=== PATIENT | male | born 1970 | race Caucasian/White ===

== ENCOUNTER 2022-12-23 10:53 | Outpatient (OUT) | payer BC, SELFPAY ==
[2022-12-23 11:40] LABS: Basophils Absolute Auto 0.1 10^3/uL (0.0-0.1); Basophils Percent Auto 0.9 % (0.2-2.0); Eosinophils Absolute Auto 0.1 10^3/uL (0.0-0.7); Eosinophils Percent Auto 1.4 % (0.9-7.0); Hematocrit 48.4 % (42.0-54.0); Hemoglobin 16.2 g/dL (14.0-18.0); Immature Granulocytes Abs Auto 0.03 10^3/uL (0.00-0.03); Immature Granulocytes Pct Auto 0.3 % (0.0-0.5); Lymphocytes Absolute Auto 2.2 10^3/uL (1.2-3.8); Lymphocytes Percent Auto 21.6 % (20.5-60.0); Mean Corpuscular HGB Conc 33.5 g/dL (29.9-35.2); Mean Corpuscular Hemoglobin 29.8 pg (25.9-34.0); Monocytes Absolute Auto 0.6 10^3/uL (0.3-0.8); Monocytes Percent Auto 5.9 % (1.7-12.0); Neutrophils Absolute Auto 7.1 10^3/uL (1.4-6.5); Neutrophils Percent Auto 69.9 % (43.0-75.0); Platelet Count 270 10^3/uL (150-450); Red Blood Count 5.44 10^6/uL (4.70-6.10); Red Cell Distribution Width 12.5 % (11.0-15.0); White Blood Count 10.2 10^3/uL (4.0-11.0)
[2022-12-23 12:02] LABS: Estimated Average Glucose 111 mg/dL; Glycohemoglobin A1C 5.5 % (4.5-6.2)
[2022-12-23 12:22] LABS: Alanine Aminotransferase 28 U/L (16-63); Albumin Level 3.7 g/dL (3.4-5.0); Alkaline Phosphatase 93 U/L (46-116); Anion Gap 12.1; Aspartate Amino Transferase 17 U/L (15-37); BUN Creatinine Ratio 6.5; Bilirubin Total 0.4 mg/dL (0.2-1.0); Calcium 8.9 mg/dL (8.5-10.1); Carbon Dioxide 26.1 mmol/L (21.0-32.0); Chloride 105 mmol/L (98-107); Chol HDL Ratio 5.2; Cholesterol 183 mg/dL (<=200); Estimated GFR (African America >60 (>=60); Estimated GFR (Non-African Ame >60 (>=60); Free T3 2.84 pg/mL (2.18-3.98); Globulin 3.6 g/dL; Glucose 102 mg/dL (74-106); HDL Cholesterol 35 mg/dL (40-60); Potassium 4.2 mmol/L (3.5-5.1); Sodium 139 mmol/L (136-145); Thyroid Stimulating Hormone 1.656 uIU/mL (0.358-3.740); Total Protein 7.3 g/dL (6.4-8.2); Triglycerides 180 mg/dL (<=150); Uric Acid 4.9 mg/dL (3.5-7.2)
[2022-12-23 12:54] LABS: Prostate Specific Antigen Scrn 0.93 ng/mL (<=4.00)
[2022-12-23 15:37] LABS: Occult Blood Negative
[2022-12-24 12:09] LABS: Insulin 17.9 uIU/mL (2.6-24.9)
== END 2022-12-23 10:54 | disposition home or self-care (01) ==
LOC: LAB 10:59
PROVIDERS: PCP Family Medicine; Visit Provider Nurse Practitioner Family
DX: Z00.00 Encounter for general adult medical examination without abnormal findings (principal); Z12.5 Encounter for screening for malignant neoplasm of prostate; Z12.11 Encounter for screening for malignant neoplasm of colon; R53.83 Other fatigue
CPT/HCPCS: 36415; 80053; 80061; 82150; 82656; 83036; 83525; 83690; 84436; 84443; 84481; 84550; 85025; G0103; G0328

== ENCOUNTER 2022-12-23 11:03 | Outpatient (OUT) | payer BC, SELFPAY ==
--- NOTE | 2022-12-23 11:39 | US_ITS ---
The [address] [address] Patient Name: JOSH KEMP MRN: [id number] date: 1970 Sex: M Assigned Patient Location: RAD Current Patient Location: [facility] Accession/Order Number: [id number] Exam Date: 12/23/2022 11:50 Report Date: 12/23/2022 13:58 At the request of: NON-STAFF PHYSICIAN Procedure: US right upper quadrant EXAMINATION: US right upper quadrant HISTORY: Abdominal pain R10.9 , epigastric pain COMPARISON: No relevant comparison available. TECHNIQUE: Transabdominal evaluation of the right upper quadrant. FINDINGS: LIVER: Mild fatty infiltration. Color Doppler demonstrates patent hepatic veins. PORTAL VEIN: Duplex Doppler demonstrates normal hepatopetal flow pattern with flow velocity averaging 34 cm/s. GALLBLADDER: No visible gallstones, wall thickening, or pericholecystic free fluid. Negative sonographic Le's sign. BILIARY: Mild dilation of the common bile duct, 7.5 mm; no appreciable stones or mass. PANCREASE: No visible mass, abnormal atrophy, or duct dilation. KIDNEY: No hydronephrosis. No visible mass or stones. Size: 12.1 x 5.0 x 6.0 cm US/US right upper quadrant IMPRESSION: 1. Mildly dilated common bile duct of uncertain etiology. Normal appearance of gallbladder and pancreas. Electronically authenticated by: EAGLE SEARS Date: 12/23/2022 13:58
[2022-12-23 12:09] LABS: Amylase 22 U/L (25-115)
[2022-12-25 13:08] LABS: Pancreatic Elastase, Fecal 312 (>200)
== END 2022-12-23 11:04 | disposition home or self-care (01) ==
PROVIDERS: PCP Family Medicine
DX: Z00.00 Encounter for general adult medical examination without abnormal findings (principal); Z12.5 Encounter for screening for malignant neoplasm of prostate; Z12.11 Encounter for screening for malignant neoplasm of colon; R10.9 Unspecified abdominal pain; K83.8 Other specified diseases of biliary tract; R53.83 Other fatigue
CPT/HCPCS: 36415; 76705; 80053; 80061; 82150; 82656; 83036; 83525; 83690; 84436; 84443; 84481; 84550; 85025; G0103; G0328

== ENCOUNTER 2022-12-24 14:06 | Outpatient (OUT) | payer BC, SELFPAY ==
--- NOTE | 2022-12-24 14:10 | CT_ITS ---
[address] [address] Patient Name: JOSH KEMP MRN: [id number] date: 1970 Sex: M Assigned Patient Location: CT Current Patient Location: CT Accession/Order Number: [id number] Exam Date: 12/24/2022 14:48 Report Date: 12/24/2022 15:31 At the request of: NON-STAFF PHYSICIAN Procedure: CT abdomen w con EXAM: CT abdomen w con HISTORY: Abdominal pain R10.9 COMPARISON: 05/14/2021 TECHNIQUE: Axial CT imaging was performed through the abdomen with intravenous contrast. Multiplanar reformats were performed. Dose reduction techniques were achieved by using automated exposure control and/or adjustment of mA and/or kV according to patient size and/or use of iterative reconstruction technique. FINDINGS: Lung bases: Lung bases are clear. No pleural effusion. GI upper: Small hiatal hernia. Liver: Hepatic steatosis. Normal size and contour. Gallbladder: No significant abnormality. No cholelithiasis. Biliary system: No intra or extrahepatic biliary ductal dilatation. Spleen: Normal size. Pancreas: Unremarkable. Adrenal glands: Normal adrenal glands. Kidneys/ureters: Normal contours. No hydronephrosis. No nephrolithiasis or ureterolithiasis. Vessels: No aneurysm. Lymph Nodes: No lymphadenopathy. lower GI: Unremarkable Vasculature is unremarkable Peritoneal cavity: No free fluid or pneumoperitoneum. Bones: No acute bony abnormality. Soft tissues: No acute abnormality. Additional findings: None. CT/CT abdomen w con IMPRESSION: No acute abnormality. Common duct is normal in size, measuring 0.6 CM. Mild hepatic steatosis. Small hiatal hernia. Electronically authenticated by: GISELLE WOODSON Date: 12/24/2022 15:31
== END 2022-12-24 14:07 | disposition home or self-care (01) ==
LOC: CT 14:06
PROVIDERS: PCP Family Medicine
DX: R10.9 Unspecified abdominal pain (principal); K76.0 Fatty (change of) liver, not elsewhere classified; K44.9 Diaphragmatic hernia without obstruction or gangrene
CPT/HCPCS: 74160; Q9967

== ENCOUNTER 2023-11-22 08:35 | Outpatient (OUT) | payer MEDICAID, SELFPAY ==
[2023-11-22 08:54] LABS: Basophils Absolute Auto 0.1 10^3/uL (0.0-0.1); Eosinophils Absolute Auto 0.3 10^3/uL (0.0-0.7); Eosinophils Percent Auto 3.2 % (0.9-7.0); Hematocrit 49.1 % (42.0-54.0); Hemoglobin 16.7 g/dL (14.0-18.0); Immature Granulocytes Abs Auto 0.02 10^3/uL (0.00-0.03); Immature Granulocytes Pct Auto 0.2 % (0.0-0.5); Lymphocytes Absolute Auto 1.9 10^3/uL (1.2-3.8); Lymphocytes Percent Auto 20.4 % (20.5-60.0); Mean Corpuscular Hemoglobin 30.6 pg (25.9-34.0); Mean Corpuscular Volume 90.1 fL (80.0-94.0); Mean Platelet Volume 10.1 fL (9.5-13.5); Monocytes Absolute Auto 0.6 10^3/uL (0.3-0.8); Monocytes Percent Auto 6.8 % (1.7-12.0); Neutrophils Absolute Auto 6.3 10^3/uL (1.4-6.5); Neutrophils Percent Auto 68.4 % (43.0-75.0); Platelet Count 272 10^3/uL (150-450); Red Blood Count 5.45 10^6/uL (4.70-6.10); Red Cell Distribution Width 12.5 % (11.0-15.0); White Blood Count 9.1 10^3/uL (4.0-11.0)
[2023-11-22 09:15] LABS: Estimated Average Glucose 105 mg/dL; Glycohemoglobin A1C 5.3 % (4.5-6.2)
[2023-11-22 09:25] LABS: Alanine Aminotransferase 36 U/L (16-63); Albumin Globulin Ratio 0.9; Albumin Level 3.6 g/dL (3.4-5.0); Alkaline Phosphatase 97 U/L (46-116); Anion Gap 11.8; Aspartate Amino Transferase 22 U/L (15-37); BUN Creatinine Ratio 13.2; Bilirubin Total 0.4 mg/dL (0.2-1.0); Calcium 8.8 mg/dL (8.5-10.1); Carbon Dioxide 27.3 mmol/L (21.0-32.0); Chloride 106 mmol/L (98-107); Estimated GFR (African America >60 (>=60); Estimated GFR (Non-African Ame >60 (>=60); Globulin 3.9 g/dL; Glucose 116 mg/dL (74-106); Potassium 4.1 mmol/L (3.5-5.1); Sodium 141 mmol/L (136-145); Thyroid Stimulating Hormone 1.516 uIU/mL (0.358-3.740); Total Protein 7.5 g/dL (6.4-8.2)
[2023-11-22 09:42] LABS: Prostate Specific Antigen Scrn 2.01 ng/mL (<=4.00)
== END 2023-11-22 08:36 | disposition home or self-care (01) ==
LOC: LAB 08:37
PROVIDERS: PCP Family Medicine; Visit Provider Family Medicine
DX: Z00.00 Encounter for general adult medical examination without abnormal findings (principal)
CPT/HCPCS: 36415; 80053; 83036; 84439; 84443; 85025; G0103

== ENCOUNTER 2024-05-17 11:24 | Outpatient (OUT) | payer BC, SELFPAY ==
--- OUTSIDE RECORDS SUMMARY | 2024-05-17 11:34 | XMS_ITS | CCD ---
Author Organization [facility] Care Team Providers Care Principal Research Economist Name Role Phone Silvia Batista Unavailable Unavailable Unavailable MER NEIL Admitting Unavailable MER NEIL Attending Unavailable BAIRON, DR VEGA Primary Care Unavailable Rishi Saenz Consulting Unavailable MER NEIL Consulting Unavailable BAIRON, DR VEGA Admitting Unavailable BAIRON, DR VEGA Attending Unavailable BAIRON, DR VEGA Primary Care Unavailable BAIRON, DR VEGA Consulting Unavailable WIALEJANDROK, DR QUANG Huerta Admitting Unavailable WIALEJANDROK, DR QUANG Huerta Attending Unavailable BAIRON, DR VEGA Primary Care Unavailable WIMITUL, DR QUANG Huerta Consulting Unavailable Kimberly Seals Consulting Unavailable BAIRON, DR VEGA Admitting Unavailable BAIRON, DR VEGA Attending Unavailable BAIRON, DR VEGA Primary Care Unavailable BAIRON, DR VEGA Consulting Unavailable BAIRON, DR VEGA Admitting Unavailable BAIRON, DR VEGA Attending Unavailable BAIRON, DR VEGA Referring Unavailable MEENAY, DR VEGA Primary Care Unavailable HOY, DR VEGA Consulting Unavailable BAIRON, DR VEGA Primary Care Unavailable MER NEIL Admitting Unavailable MER NEIL Attending Unavailable NEYMAR, DR NORTON Consulting Unavailable KAMILLA GUTIÉRREZ Consulting Unavailable MER NEIL Consulting Unavailable Mary Alice Ruvalcaba Consulting Unavailable SHIRA, DR QUANG Huerta Admitting Unavailable SHIRA, DR QUANG Huerta Attending Unavailable BAIRON, DR VEGA Primary Care Unavailable SHIRA, DR QUANG Huerta Consulting Unavailable SHIRA, DR QUANG Huerta Admitting Unavailable SHIRA, DR QUANG Huerta Attending Unavailable BAIRON, DR VEGA Primary Care Unavailable SHIRA, DR QUANG Huerta Consulting Unavailable ROLANDO COOK Consulting Unavailable EAGLE BRITT Consulting Unavailable Caden Cervantes Unavailable Medications Current Medications Medication Drug Class(es) Dates Sig (Normalized) Sig (Original) Aspir-81 (1 source) Aspir-81 Active Metoprolol (1 source) beta-Adrenergic Hero Lopressor 10mg Active omeprazole 40 mg delayed release oral capsule (1 source) Proton Pump Inhibitor Start: 12-23-2022 take 1 capsule by mouth once daily Omeprazole 40 MG 1 capsule 30 minutes before morning meal Orally Once a day for 30 days Dec, Active Completed/Discontinued Medications Medication Drug Class(es) Dates Sig (Normalized) Sig (Original) aspirin 81 mg delayed release oral tablet (3 sources) Platelet Aggregation Inhibitor, Nonsteroidal Anti-inflammatory Drug take 1 tablet by mouth once daily Aspirin EC 81 MG Oral Tablet Delayed Release TAKE 1 TABLET DAILY. Quantity: 0 Refills: 0 Ordered: 04-Jun-2021 DO Active famotidine 20 mg oral tablet (2 sources) Histamine-2 Receptor Antagonist Start: 06-04-2021 take 1 tablet by mouth at bedtime Famotidine 20 MG Oral Tablet TAKE 1 TABLET AT BEDTIME. Quantity: 90 Refills: 3 Ordered: 05-Jun-2021 Edouard Carr MD Start : 04-Jun-2021 Active new start lisinopril 20 mg oral tablet (3 sources) Angiotensin Converting Enzyme Inhibitor Lisinopril 20 MG Oral Tablet Quantity: 0 Refills: 0 Ordered: 04-Jun-2021 DO Active pantoprazole (1 source) Proton Pump Inhibitor Protonix Not-Taking pravastatin sodium 20 mg oral tablet (3 sources) HMG-CoA Reductase Inhibitor Start: 06-04-2021 take 1 tablet by mouth two times weekly Pravastatin Sodium 20 MG Oral Tablet one tablet twice weekly Quantity: 24 Refills: 3 Ordered: 05-Jun-2021 Edouard Carr MD Start : 04-Jun-2021 Active new start Pravachol Active Problems Active Problems Problem Classification Problem Date Documented Date Episodic/Chronic Abdominal pain (8 sources) Epigastric pain; Translations: [Unspecified abdominal pain] Onset: 06-05-2021 Episodic Disorders of lipid metabolism (3 sources) Hyperlipidemia; Translations: [Other and unspecified hyperlipidemia] Chronic Diverticulosis and diverticulitis (1 source) Diverticulosis of large intestine without perforation or abscess without bleeding; Translations: [DVRTCLOS LG INT NO PERF/ABSC W/O BL] Onset: 08-13-2021 Chronic Esophageal disorders (4 sources) Gastroesophageal reflux disease; Translations: [Esophageal reflux] Onset: 08-13-2021 Chronic Essential hypertension (4 sources) Benign essential hypertension; Translations: [Benign essential hypertension] Onset: 05-15-2021 Chronic Gastritis and duodenitis (1 source) Gastritis, unspecified, without bleeding; Translations: [GASTRITIS UNS WITHOUT BLEEDING] Onset: 08-13-2021 Episodic Other and unspecified benign neoplasm (1 source) Benign neoplasm of colon, unspecified; Translations: [BENIGN NEOPLASM COLON UNSPECIFIED] Onset: 08-13-2021 Episodic Other liver diseases (1 source) Fatty (change of) liver, not elsewhere classified; Translations: [FATTY CHANGE LIVER NEC] Onset: 06-05-2021 Chronic Other nutritional; endocrine; and metabolic disorders (3 sources) Body mass index 40+ - severely obese; Translations: [Morbid obesity] Chronic Other screening for suspected conditions (not mental disorders or infectious disease) (5 sources) Encounter for screening for malignant neoplasm of colon; Translations: [Encounter for screening for malignant neoplasm of prostate] Onset: 05-15-2021 Episodic Substance-related disorders (4 sources) Smoker; Translations: [Tobacco use disorder] Onset: 08-13-2021 Chronic Comment on above: 1 pack per day.; Unclassified (4 sources) CONTACT W/AND (SUSP) EXPOS COVID-19; Translations: [CONTACT W/AND (SUSP) EXPOS COVID-19] Onset: 05-15-2021 Viral infection (1 source) COVID-19; Translations: [COVID-19] Onset: 06-21-2021 Past or Other Problems Problem Classification Problem Date Documented Da te Episodic/Chronic Genitourinary symptoms and ill-defined conditions (1 source) Hematuria, unspecified; Translations: [HEMATURIA UNSPECIFIED] Onset: 05-15-2021 Episodic Nonspecific chest pain (4 sources) Chest pain; Translations: [Chest pain, unspecified] Onset: 05-15-2021 Episodic Other aftercare (1 source) Other jail (current) drug therapy; Translations: [OTH ASSISTED CURRENT DRUG THERAPY] Onset: 05-15-2021 Episodic Other aftercare (1 source) senior living (current) use of aspirin; Translations: [ASSISTED CURRENT USE OF ASPIRIN] Onset: 05-15-2021 Episodic Spondylosis; intervertebral disc disorders; other back problems (1 source) Dorsalgia, unspecified; Translations: [DORSALGIA UNSPECIFIED] Onset: 05-15-2021 Episodic Unclassified (1 source) CONTACT W/AND (SUSP) EXPOS COVID-19; Translations: [CONTACT W/AND (SUSP) EXPOS COVID-19] Onset: 06-26-2021 Urinary tract infections (4 sources) Urinary tract infection, site not specified; Translations: [UTI SITE NOT SPECIFIED] Onset: 06-04-2021 Episodic Results Test Name Value Interpretation Reference Range Facility NM HEPATOBILIARY SCAN W EFon 07-23-2021 NM HEPATOBILIARY SCAN W EF HIDA SCAN WITH GALLBLADDER EJECTION FRACTION HISTORY: Abdominal Pain. COMPARISON: Ultrasound 06/04/2021. METHOD: Following IV injection of 5. mCi of [id number] , anterior imaging of the abdomen was acquired for 60 minutes. After the gallbladder was visualized the patient was given 8 ounces of Ensure and the gallbladder ejection fraction was calculated. FINDINGS: There is satisfactory uptake of radiopharmaceutical by the liver. The gallbladder, bile duct, and bowel are seen in the expected period of time and sequence. The gallbladder ejection fraction is normal at 75%. IMPRESSION: Normal hepatic biliary scintigraphy and gallbladder ejection fraction. Electronically authenticated by: KIMBERLY SEALS Date: 2021-07-23 17:04 Normal [facility] H PYLORI TISSUEon 07-06-2021 H PYL TISSUE, UREASE Negative Normal NEGATIVE [facility] Comment on above: Performed By: #### H PYLT #### [facility] [address] [address] [address] Miguel Echols [facility]on SARS-CoV-2 (COVID-19) RNA COURTNEY+probe Ql (Unsp spec) Not detected Normal NOT DETECTED [facility] Comment on above: Result Comment: This test is not yet approved or cleared by the [place] FDA. When there are no FDA-approved or cleared tests available, and other criteria are met, FDA can make tests available under an emergency access mechanism called an Emergency Use Authorization (EUA). The EUA for this test is supported by the Manufacturing Production Technician of Health and Human Service's (HHS's) declaration that circumstances exist to justify the emergency use of in vitro diagnostics for the detection and/or diagnosis of the virus that causes COVID-19. This EUA will remain in effect (meaning this test can be used) for the duration of the COVID-19 declaration justifying emergency of IVDs, unless it is terminated or revoked by FDA (after which the test may no longer be used). When diagnostic testing is negative, the possibility of a false negative should be considered in the context of a patient's recent exposures and the presence of clinical signs and symptoms consistent with SARS-CoV-2. Performed By: #### C VDTB #### [facility] [address] [place], [place] [id number] Dr. Miguel Echols Covid-19 PCR ([facility])on SARS-CoV-2 (COVID-19) RNA COURTNEY+probe Ql (Unsp spec) Detected Critically abnormal NOT DETECTED [facility] Comment on above: Result Comment: This test is not yet approved or cleared by the [place] FDA. When there are no FDA-approved or cleared tests available, and other criteria are met, FDA can make tests available under an emergency access mechanism called an Emergency Use Authorization (EUA). The EUA for this test is supported by the Manufacturing Production Technician of Health and Human Service's (HHS's) declaration that circumstances exist to justify the emergency use of in vitro diagnostics for the detection and/or diagnosis of the virus that causes COVID-19. This EUA will remain in effect (meaning this test can be used) for the duration of the COVID-19 declaration justifying emergency of IVDs, unless it is terminated or revoked by FDA (after which the test may no longer be used). Performed By: #### C VDTB #### [facility] [address] [place], [place] [id number] Dr. Miguel Echols SINGLE QUAD RT UPPERon US SINGLE QUAD RT UPPER EXAM: Right upper quadrant ultrasound REASON FOR EXAM: Male, 50 years, Right upper quadrant pain. TECHNIQUE: Transabdominal ultrasound was performed with real-time and static grayscale imaging. TECHNICAL QUALITY: Technique is adequate. COMPARISON: CT 05/14/2021 FINDINGS: LIVER: There is increased echogenicity of the liver consistent with steatosis. The liver is enlarged, measuring 19.7 cm in length. The bile ducts are within normal limits. There is normal hepatic flow. There is normal hepatopedal portal venous flow. There is no demonstrated mass lesion. GALLBLADDER: Normal distended gallbladder. The gallbladder wall measures 2 mm. There is a negative sonographic Le's sign. There is no pericholecystic fluid. There are no gallstones. COMMON BILE DUCT: The common bile duct measures 4.1 mm. PANCREAS: Normal size of the head, body, and tail of the pancreas. There is normal echogenicity of the pancreas. There is no demonstrated pancreatic mass or cyst. RIGHT KIDNEY: Normal size of the kidney. The kidney measures 11.7 x 5.5 x 5.1 cm. Normal renal cortex. There is no demonstrated renal mass or cyst. There is no hydronephrosis. IMPRESSION: Hepatic steatosis and hepatomegaly. Unremarkable gallbladder. No additional abnormality is seen. Electronically authenticated by: RISHI SAENZ Date: 2021-06-04 22:15 Normal [facility] CULTURE URINEon 06-04-2021 CULTURE URINE Culture Observations : LIGHT GROWTH OF MIXED SKIN MARISA. NO POTENTIAL PATHOGENS SEEN. Normal [facility] Comment on above: Performed By: #### P SASCLC #### [facility] [address] [place] [address] Dr. Miguel Echols Office Visit (Cardiology)on 06-04-2021 Follow-up visit Diagnoses/Problems Assessed Chest pain (786.50) (R07.9) Essential hypertension, benign (401.1) (I10) Hyperlipidemia (272.4) (E78.5) Morbid obesity with BMI of 40.0-44.9, adult (278.01,V85.41) (E66.01,Z68.41) Current smoker (305.1) (F17.200) 1 pack per day. GERD (gastroesophageal reflux disease) (530.81) (K21.9) Orders Chest pain, Essential hypertension, benign IO EKG Electrocardiogram- 12 Lead; Status:Complete; Done: 04Jun2021 Chest pain, GERD (gastroesophageal reflux disease) Changed: From To Famotidine 20 MG Oral Tablet TAKE 1 TABLET AT BEDTIME Chest pain, Hyperlipidemia Cardiac Stress Test; Status:Hold For - Scheduling; Requested for:04Jun2021; Hyperlipidemia Changed: From To Pravastatin Sodium 20 MG Oral Tablet one tablet twice weekly Morbid obesity with BMI of 40.0-44.9, adult Healthy Weight Tips; Status:Complete; Done: 04Jun2021 SocHx: Current smoker You need to quit smoking.; Status:Complete; Done: 04Jun2021 Tobacco Use Screening; Status:Complete; Done: 04Jun2021 You need to stop smoking. Though it is not easy, more than half of all adult smokers have quit. We encourage you to write down all the reasons you should quit smoking and set a quit date for yourself. Ask us how we can help. You may also call 0-573-HIAMNOW for free resources and assistance.; Status:Complete; Done: 04Jun2021 Patient Instructions By signing my name below, Chiquita Vázquez LPN, Scribe, attest that this documentation has been prepared under the direction and in the presence of Dr. Edouard Carr MD. All medical record entries made by the Winnie were at my direction and personally dictated by me. I have reviewed the chart and agree that the record accurately reflects my personal performance of the history, physical exam, discussion and plan. Please bring all medicines, vitamins, and herbal supplements with you when you come to the office. Prescriptions will not be filled unless you are compliant with your follow up appointments or have a follow up appointment scheduled as per instruction of your physician. Refills should be requested at the time of your visit. Follow-up after testing completed Chief Complaint JOSH KEMP is being seen for an initial evaluation of an abnormal ECG. History of Present Illness Patient is self-referred for chest discomfort Recently has been experiencing episodes of epigastric and chest discomfort. Often times after meals. He states certain kinds of foods reproduce the symptomatology. He had a really bad episode, though, and ultimately went to the emergency room in [place] after an hour of pain. He had about 3 or 4 more hours of pain in the emergency room. They kept him for 7 hours and did multiple EKGs and 3 sets of cardiac enzymes, all of which were normal except for an incomplete right bundle branch block. He presents now for evaluation. Detailed history and suggest to me that his symptomatology actually sounds like gallbladder colic and/or acid reflux with esophageal spasm. His concurs. He is aerobically active and has none of the symptoms with aerobic activity but typically has them at rest and/or after meals. Because of this I recommend that we add something for presumed acid reflux specifically Pepcid twice a day. He has a gallbladder ultrasound pending and we also feel that in view of his risk profile for coronary disease which includes hypertension hyperlipidemia and tobacco use that a treadmill test should be done and I believe routine treadmill testing will suffice. This will be done and a follow-up thereafter He was counseled extensively on the merits of smoking cessation and also statin therapy. He ultimately agrees to taking a small dose of pravastatin several times per week. We will attempt to implement this and/or other low-dose statin therapies in an effort to favorably improve his hyperlipidemia. Also the merits of diet and weight loss were touched upon. Surgical History Problems Denied: History of Complete colonoscopy History of Nose surgery History of Vasectomy Current Meds Medication NameInstruction Aspirin EC 81 MG Oral Tablet Delayed ReleaseTAKE 1 TABLET DAILY. Lisinopril 20 MG Oral Tablet Allergies Medication No Known Drug Allergies Recorded By: Luz Martínez; 06/04/2021 10:10:41 AM Family History Mother Family history of hypertension (V17.49) (Z82.49) Family history of malignant neoplasm (V16.9) (Z80.9) Father Family history of diabetes mellitus (V18.0) (Z83.3) Family history of hypertension (V17.49) (Z82.49) Brother Family history of hypertension (V17.49) (Z82.49) Family history of Kidney stones, calcium oxalate Social History Problems Caffeine use (V49.89) (Z78.9) one pot daily. Consumes alcohol occasionally (V49.89) (Z78.9) Current smoker (305.1) (F17.200) 1 pack per day. No illicit drug use Review of Systems Constitutional: not feeling tired. Eyes: no eyesight problems. ENT: no hearing loss and no no (more content not included)... Normal [employer] Tobacco Screening.on 022 Tobacco use status [facility] a) Yes -[facility] y [address] DO Work Phone: UA RANDOM W/MICROSCOPICon BACTERIA NONE SEEN Normal NONE SEEN [facility] Comment on above: Performed By: #### P SASCLC #### [facility] [address] [address] [address] Miguel Echols Bilirubin Ql (U) SMALL Abnormal NEGATIVE [facility] Comment on above: Performed By: #### P SASCLC #### [facility] [address] [address] [address] Miguel Echols CAST NONE SEEN Normal NONE SEEN [facility] Comment on above: Performed By: #### P SASCLC #### [facility] [address] [address] [address] Miguel Echols Clarity (U) CLEAR Normal CLEAR [facility] Comment on above: Performed By: #### P SASCLC #### [facility] [address] [place] [address] Dr. Miguel Echols Color (U) LT. YELLOW Normal YELLOW [facility] Comment on above: Performed By: #### P SASCLC #### [facility] [address] [place] [address] Dr. Miguel Echols Crystals LM Nom (Urine sed) NONE SEEN Normal NONE SEEN [facility] Comment on above: Performed By: #### P SASCLC #### [facility] [address] [place] [address] Dr. Miguel Echols Epithelial cells LM Ql (Urine sed) RARE Normal NONE SEEN /RARE [facility] Comment on above: Performed By: #### P SASCLC #### [facility] [address] [place] [address] Dr. Miguel Echols Glucose Ql (U) Negative Normal NEGATIVE [facility] Comment on above: Performed By: #### P SASCLC #### [facility] [address] [place] [address] Dr. Miguel Echols Hemoglobin Ql (U) Negative Normal NEGATIVE [facility] Comment on above: Performed By: #### P SASCLC #### [facility] [address] [place] [address] Dr. Miguel Echols Ketones Ql (U) Negative Normal NEGATIVE [facility] Comment on above: Performed By: #### P SASCLC #### [facility] [address] [place] [address] Dr. Miguel Echols LEUKOCYTES Negative Normal NEGATIVE [facility] Comment on above: Performed By: #### P SASCLC #### [facility] [address] [place], [place] [id number] Dr. Miguel Echols MUCOUS NONE SEEN Normal NONE SEEN [facility] Comment on above: Performed By: #### P SASCLC #### [facility] [address] [place] [address] Dr. Miguel Echols Nitrite Ql (U) Negative Normal NEGATIVE [facility] Comment on above: Performed By: #### P SASCLC #### [facility] [address] [place] [address] Dr. Miguel Echols pH (U) 7.5 [pH] Normal 5-9 [facility] Comment on above: Performed By: #### P SASCLC #### [facility] [address] [place] [address] Dr. Miguel Echols RBC 0-2 Normal 0-2 [facility] Comment on above: Performed By: #### P SASCLC #### [facility] [address] [place] [address] Dr. Miguel Echols SPEC GRAVITY 1.010 Normal 1.005-<=1.02 5 [facility] Comment on above: Performed By: #### P SASCLC #### [facility] [address] [place] [address] Dr. Miguel Echols UA PROTEIN Negative Normal NEGATIVE/ TRACE [facility] Comment on above: Performed By: #### P SASCLC #### [facility] [address] [place] [address] Dr. Miguel Echols Urobilinogen Qn (U) 0.2 {Kameron'U}/dL Normal 0.2 - 1. 0 [facility] Comment on above: Performed By: #### P SASCLC #### [facility] [address] [place] [address] Dr. Miguel Echols WBC 0-2 Abnormal NONE SEEN [facility] Comment on above: Performed By: #### P SASCLC #### [facility] [address] [place] [address] Dr. Miguel Echols INSULINon 05-15-2021 Insulin 29.6 uIU/mL Critically high 2.6-24.9 [facility] Comment on above: Performed By: #### C MREP #### [facility] [address] [place] [address] Dr. Miguel Echols PSA SCREENING LABCORPon 04-19 Prostate specific Ag [Mass/Vol] 0.8 ng/mL Normal 0.0-4.0 [facility] Comment on above: Result Comment: Bhavik [place] methodology. . According to the [place] [employer], Serum PSA should decrease and remain at undetectable levels after radical prostatectomy. The AUA defines biochemical recurrence as an initial PSA value 0.2 ng/mL or greater followed by a subsequent confirmatory PSA value 0.2 ng/mL or greater. Values obtained with different assay methods or kits cannot be used interchangeably. Results cannot be interpreted as absolute evidence of the presence or absence of malignant disease. Performed By: #### P SASCLC #### [facility] [address] [place] [address] Dr. Miguel Echols CARDIAC FABIAN 3-6on CK [Catalytic activity/Vol] 141 U/L Normal 55-170 [facility] Comment on above: Performed By: #### C MREP #### [facility] [address] [place] [address] Dr. Miguel Echols CK.MB [Mass/Vol] 1.31 ng/mL Normal <=2.37 [facility] Comment on above: Performed By: #### C MREP #### [facility] [address] [place] [address] Dr. Miguel Echols HSTROP 14.0 pg/mL Normal 4.0-42.2 [facility] Comment on above: Result Comment: CUT- OFF POINTS HAVE BEEN ESTABLISHED BASED ON THE FOURTH UNIVERSAL DEFINITIONS OF MYOCARDIAL INFARCTION. THE UPPER REFERENCE LIMIT (URL) OF TROPONIN, DEFINED THE 99TH PERCENTILE OF cTnI DISTRIBUTION IN A REFERENCE POPULATION, HAS BEEN CONFIRMED THE DECISION THRESHOLD FOR [place] DIAGNOSIS. Performed By: #### C MREP #### [facility] [address] [place] [address] Dr. Miguel Echols CK [Catalytic activity/Vol] 145 U/L Normal 55-170 [facility] Comment on above: Performed By: #### C MREP #### [facility] [address] [place] [address] Dr. Miguel Echols CK.MB [Mass/Vol] 1.46 ng/mL Normal <=2.37 [facility] Comment on above: Performed By: #### C MREP #### [facility] [address] [place] [address] Dr. Miguel Echols HSTROP 14.2 pg/mL Normal 4.0-42.2 [facility] Comment on above: Result Comment: CUT- OFF POINTS HAVE BEEN ESTABLISHED BASED ON THE FOURTH UNIVERSAL DEFINITIONS OF MYOCARDIAL INFARCTION. THE UPPER REFERENCE LIMIT (URL) OF TROPONIN, DEFINED THE 99TH PERCENTILE OF cTnI DISTRIBUTION IN A REFERENCE POPULATION, HAS BEEN CONFIRMED THE DECISION THRESHOLD FOR [place] DIAGNOSIS. Performed By: #### C MREP #### [facility] [address] [place] [address] Dr. Miguel Echols CBC AUTO DIFFon 05-14-2021 BASO # 0.1 103/ul Normal 0.0-0.1 [facility] Comment on above: Performed By: #### C BC #### [facility] [address] [place] [address] Dr. Miguel Echols Basophils/100 WBC (Bld) 1.2 % Normal 0.2-2.0 [facility] Comment on above: Performed By: #### C BC #### [facility] [address] [place] [address] Dr. Miguel Echols EO # 0.3 103/ul Normal 0.0-0.7 [facility] Comment on above: Performed By: #### C BC #### [facility] [address] [place] [address] Dr. Miguel Echols Eosinophils/100 WBC (Bld) 3.7 % Normal 0.9-7.0 [facility] Comment on above: Performed By: #### C BC #### [facility] [address] [place] [address] Dr. Miguel Echols Erythrocyte distribution width (RBC) [Ratio] 12.5 % Normal 11.0-15.0 [facility] Comment on above: Performed By: #### C BC #### [facility] [address] [place] [address] Dr. Miguel Echols Hematocrit (Bld) [Volume fraction] 49.3 % Normal 42.0-54.0 [facility] Comment on above: Performed By: #### C BC #### [facility] [address] [place] [address] Dr. Miguel Echols Hemoglobin (Bld) [Mass/Vol] 16.5 g/dL Normal 14.0-18.0 [facility] Comment on above: Performed By: #### C BC #### [facility] [address] [place] [address] Dr. Miguel Echols IG # 0.03 10e3/ul Normal 0.00-0.03 [facility] Comment on above: Performed By: #### C BC #### [facility] [address] [place] [address] Dr. Miguel Echols IG % 0.4 % Normal 0.0-0.5 [facility] Comment on above: Performed By: #### C BC #### [facility] [address] [place] [address] Dr. Miguel Echols LYMPH # 1.8 103/ul Normal 1.2-3.8 [facility] Comment on above: Performed By: #### C BC #### [facility] [address] [place] [address] Dr. Miguel Echols Lymphocytes/100 WBC (Bld) 20.9 % Normal 20.5-60.0 [facility] Comment on above: Performed By: #### C BC #### [facility] [address] [place] [address] Dr. Miguel Echols MANUAL DIFF REQ NO Normal [facility] Comment on above: Performed By: #### C BC #### [facility] [address] [place] [address] Dr. Miguel Echols MCH (RBC) [Entitic mass] 29.9 pg Normal 25.9-34.0 [facility] Comment on above: Performed By: #### C BC #### [facility] [address] [place] [address] Dr. Miguel Echols MCHC (RBC) [Mass/Vol] 33.5 g/dL Normal 29.9-35.2 [facility] Comment on above: Performed By: #### C BC #### [facility] [address] [place] [address] Dr. Miguel Echols MCV (RBC) [Entitic vol] 89.5 fL Normal 80.0-94.0 [facility] Comment on above: Performed By: #### C BC #### [facility] [address] [address] [address] Miguel Echols MONO # 0.6 103/ul Normal 0.3-0.8 [facility] Comment on above: Performed By: #### C BC #### [facility] [address] [place] [address] Dr. Miguel Echols Monocytes/100 WBC (Bld) 7.5 % Normal 1.7-12.0 [facility] Comment on above: Performed By: #### C BC #### [facility] [address] [place] [address] Dr. Miguel Echols NEUT # 5.6 103/ul Normal 1.4-6.5 [facility] Comment on above: Performed By: #### C BC #### [facility] [address] [place] [address] Dr. Miguel Echols Neutrophils/100 WBC (Bld) 66.3 % Normal 43.0-75.0 [facility] Comment on above: Performed By: #### C BC #### [facility] [address] [place] [address] Dr. Miguel Echols Platelet mean volume (Bld) [Entitic vol] 10.2 fL Normal 9.5-13.5 [facility] Comment on above: Performed By: #### C BC #### [facility] [address] [place] [address] Dr. Miguel Echols PLT 269 103/ul Normal 150-450 [facility] Comment on above: Performed By: #### C BC #### [facility] [address] [place] [address] Dr. Miguel Echols RBC 5.51 106/ul Normal 4.70-6.10 [facility] Comment on above: Performed By: #### C BC #### [facility] [address] [place], [place] [address] Dr. Miguel Echols WBC 8.5 103/ul Normal 4.0-11.0 [facility] Comment on above: Performed By: #### C BC #### [facility] [address] [place], [place] [address] ABD/PELVIS WO CONon 05-14 CT ABD/PELVIS WO CON EXAMINATION: CT ABD/PELVIS WO CON, 05/14/2021 2:07 AM EST HISTORY: CALCULUS OF KIDNEY medial low back pain right greater than left COMPARISON: None. TECHNIQUE: CT scan of the abdomen and pelvis was performed without IV contrast. CT dose reduction technique was used, including Automated Exposure Control. FINDINGS: Visualized lung bases and cardiac apex are unremarkable. Liver, gallbladder, pancreas, spleen, adrenal glands, kidneys, urinary bladder, appendix are unremarkable. No large radiopaque stones or hydroureteronephrosis. Mild colonic diverticula without diverticulitis. Moderate amount stool throughout the large bowel. No evidence for small bowel obstruction, large ascites, or free air. Small bowel fat-containing inguinal hernia without bowel protrusion. No acute bony abnormality. IMPRESSION: No large radiopaque stones or hydroureteronephrosis. Mild colonic diverticula without diverticulitis. Moderate amount stool throughout the large bowel. Electronically authenticated by: MARY ALICE RUVALCABA Date: 2021-05-14 03:13 Normal [facility] Covid-19 PCR (CVDTB)on 04-19 SARS-CoV-2 (COVID-19) RNA COURTNEY+probe Ql (Unsp spec) Not detected Normal NOT DETECTED [facility] Comment on above: Result Comment: This test is not yet approved or cleared by the [place] FDA. When there are no FDA-approved or cleared tests available, and other criteria are met, FDA can make tests available under an emergency access mechanism called an Emergency Use Authorization (EUA). The EUA for this test is supported by the Manufacturing Production Technician of Health and Human Service's (HHS's) declaration that circumstances exist to justify the emergency use of in vitro diagnostics for the detection and/or diagnosis of the virus that causes COVID-19. This EUA will remain in effect (meaning this test can be used) for the duration of the COVID-19 declaration justifying emergency of IVDs, unless it is terminated or revoked by FDA (after which the test may no longer be used). When diagnostic testing is negative, the possibility of a false negative should be considered in the context of a patient's recent exposures and the presence of clinical signs and symptoms consistent with SARS-CoV-2. Performed By: #### C VDTBH #### [facility] [address] [place] [address] Dr. Miguel Echols D-DIMERon 05-14-2021 D-DIMER 0.28 mg/L FEU Normal 0.19-0.50 [facility] Comment on above: Performed By: #### C MREP #### [facility] [address] [place] [address] Dr. Miguel Echols D-DIMER COMMENTS SEE BELOW Normal [facility] Comment on above: Result Comment: Incr eases in D-Dimer concentration observed with thromboembolic events can be variable due to localization, size, and age of the thrombus. Therefore, a thromboembolic event cannot be diagnosed with certainty on the basis of the reference range. D-Dimers may also be elevated for a variety of disorders including: advanced age, , coronary disease, cancer, liver disease, infection, inflammation, hematoma, DIC, trauma, post-surgery, diabetes, thrombolytic or anticoagulant therapy, stress, and generalized hospitalization. Performed By: #### C MREP #### [facility] [address] [place] [address] Dr. Miguel Echols ER URINE PROFILEon Bilirubin Ql (U) SMALL Abnormal NEGATIVE [facility] Comment on above: Performed By: #### E MICHAEL UMICRO #### [facility] [address] [place] [address] Dr. Miguel Echols Clarity (U) SL CLOUDY Abnormal CLEAR [facility] Comment on above: Performed By: #### E KARTIKR UMICRO #### [facility] [address] [place] [address] Dr. Miguel Echols Color (U) YELLOW Normal YELLOW [facility] Comment on above: Performed By: #### MANSI KURTZRO #### [facility] [address] [place] [address] Dr. Miguel BENÍTEZ A micrscopic examination will be performed if indicated. Normal [facility] Comment on above: Performed By: #### MANSI KURTZRO #### [facility] [address] [place] [address] Dr. Miguel Echols Glucose Ql (U) Negative Normal NEGATIVE [facility] Comment on above: Performed By: #### MANSI KURTZRO #### [facility] [address] [place] [address] Dr. Miguel Echols Hemoglobin Ql (U) TRACE-INTACT Abnormal NEGATIVE [facility] Comment on above: Performed By: #### MANSI KURTZRO #### [facility] [address] [place] [address] Dr. Miguel Echols Ketones Ql (U) Negative Normal NEGATIVE [facility] Comment on above: Performed By: #### MANSI KURTZRO #### [facility] [address] [place] [address] Dr. Miguel Echols LEUKOCYTES Negative Normal NEGATIVE [facility] Comment on above: Performed By: #### MANSI KURTZRO #### [facility] [address] [place] [address] Dr. Miguel Echols Nitrite Ql (U) Negative Normal NEGATIVE [facility] Comment on above: Performed By: #### MANSI KURTZRO #### [facility] [address] [place] [address] Dr. Miguel Echols pH (U) 6.5 [pH] Normal 5-9 [facility] Comment on above: Performed By: #### MANSI KURTZRO #### [facility] [address] [place] [address] Dr. Miguel Echols SPEC GRAVITY 1.025 Normal 1.005-<=1.02 5 [facility] Comment on above: Performed By: #### MANSI KURTZRO #### [facility] [address] [place] [address] Dr. Miguel Echols UA PROTEIN Negative Normal NEGATIVE/ TRACE [facility] Comment on above: Performed By: #### JAVIER KURTZ #### [facility] [address] [place] [address] Dr. Miguel Echols UR MICRO IND INDICATED Normal [facility] Comment on above: Performed By: #### JAVIER KURTZ #### [facility] [address] [place] [address] Dr. Miguel Echols Urobilinogen Qn (U) 0.2 {Kameron'U}/dL Normal 0.2 - 1. 0 [facility] Comment on above: Performed By: #### JAVIER KURTZ #### [facility] [address] [place] [address] Dr. Miguel Echols GLYCOHEMOGLOBIN A1Con 2020 ADA RECOMMENDATION ADA THERAPEUTIC TARG ET 6.0 - 7.0 ACTION SUGGESTED > 7.0 Normal [facility] Comment on above: Performed By: #### A 1C #### [facility] [address] [place] [address] Dr. Miguel Echols Glucose [Mass/Vol] 117 mg/dL Normal [facility] Comment on above: Performed By: #### A 1C #### [facility] [address] [place] [address] Dr. Miguel Echols HbA1c (Bld) [Mass fraction] 5.7 % Normal <=6.0 [facility] Comment on above: Performed By: #### A 1C #### [facility] [address] [place] [address] Dr. Miguel Echols LIPID PROFILEon 05-14-2021 CHOL-HDL RATIO NORM SEE BELOW Normal [facility] Comment on above: Result Comment: 3.3 - 4.4 LOW RISK 4.4 - 7.1 AVERAGE RISK 7.1 - 11.0 MODERATE RISK >11.0 HIGH RISK Performed By: #### C MREP #### [facility] [address] [place] [address] Dr. Miguel Echols Cholesterol [Mass/Vol] 186 mg/dL Normal <=200 [facility] Comment on above: Performed By: #### C MREP #### [facility] [address] [address] [address] Miguel Echols Cholesterol in HDL [Mass/Vol] 36 mg/dL Normal [facility] Comment on above: Performed By: #### C MREP #### [facility] [address] [address] [address] Miguel Echols Cholesterol in LDL [Mass/Vol] 119.4 mg/dL Normal [facility] Comment on above: Performed By: #### C MREP #### [facility] [address] [address] [address] Miguel Ehcols Cholesterol.total/C holesterol in HDL [Mass ratio] 5.2 {ratio} Normal [facility] Comment on above: Performed By: #### C MREP #### [facility] [address] [address] [address] Miguel Echols HDL NORMAL > or = 60 mg/dl - LO W CARDIOVASCULAR RISK <40 mg/dl - HIGH CARDIOVASCULAR RISK Normal [facility] Comment on above: Performed By: #### C MREP #### [facility] [address] [address] [address] Miguel Echols LDL CALC NORMAL SEE BELOW Normal [facility] Comment on above: Result Comment: <100 mg/dl OPTIMAL 100 - 129 mg/dl NEAR OR ABOVE OPTIMAL 130 - 159 mg/dl BORDERLINE HIGH 160 - 189 mg/dl HIGH >190 mg/dl VERY HIGH Performed By: #### C MREP #### [facility] [address] [place] [address] Dr. Miguel Echols Triglyceride [Mass/Vol] 153 mg/dL Critically high <=150 [facility] Comment on above: Performed By: #### C MREP #### [facility] [address] [address] [address] Miguel Echols VLDL CALC 30.6 mg/dL Normal [facility] Comment on above: Performed By: #### C MREP #### [facility] [address] [address] [address] Miguel Echols PROF 14(COMP METB)on 021 Albumin [Mass/Vol] 3.6 g/dL Normal 3.5-5.0 [facility] Comment on above: Performed By: #### C MREP #### [facility] [address] [place] [address] Dr. Miguel Echols Albumin/Globulin [Mass ratio] 1.0 {ratio} Normal [facility] Comment on above: Performed By: #### C MREP #### [facility] [address] [place] [address] Dr. Miguel Echols ALP [Catalytic activity/Vol] 90 U/L Normal 38-126 [facility] Comment on above: Performed By: #### C MREP #### [facility] [address] [place] [address] Dr. Miguel Echols ALT [Catalytic activity/Vol] 31 U/L Normal 21-72 [facility] Comment on above: Performed By: #### C MREP #### [facility] [address] [place] [address] Dr. Miguel Echols Anion gap [Moles/Vol] 14.1 mmol/L Normal [facility] Comment on above: Performed By: #### C MREP #### [facility] [address] [place] [address] Dr. Miguel Echols AST [Catalytic activity/Vol] 18 U/L Normal 17-59 [facility] Comment on above: Performed By: #### C MREP #### [facility] [address] [place] [address] Dr. Miguel Echols Bilirubin [Mass/Vol] 0.5 mg/dL Normal 0.2-1.3 [facility] Comment on above: Performed By: #### C MREP #### [facility] [address] [place] [address] Dr. Miguel Echols Calcium [Mass/Vol] 9.0 mg/dL Normal 8.4-10.2 [facility] Comment on above: Performed By: #### C MREP #### [facility] [address] [place] [address] Dr. Miguel Echols Chloride [Moles/Vol] 102 mmol/L Normal 98-107 [facility] Comment on above: Performed By: #### C MREP #### [facility] [address] [address] [address] Miguel Echols CO2 [Moles/Vol] 24.9 mmol/L Normal 22.0-30.0 [facility] Comment on above: Performed By: #### C MREP #### [facility] [address] [address] [address] Miguel Echols Creatinine [Mass/Vol] 0.87 mg/dL Normal 0.66-1.25 [facility] Comment on above: Performed By: #### C MREP #### [facility] [address] [place] [address] Dr. Miguel Echols EGFR-AF CANADIAN >60 Normal >=60 [facility] Comment on above: Performed By: #### C MREP #### [facility] [address] [place] [address] Dr. Miguel Echols EGFR-NON AF CANADIAN >60 Normal >=60 [facility] Comment on above: Performed By: #### C MREP #### [facility] [address] [place] [address] Dr. Miguel Echols Globulin (S) [Mass/Vol] 3.6 g/dL Normal [facility] Comment on above: Performed By: #### C MREP #### [facility] [address] [place] [address] Dr. Miguel Echols Glucose [Mass/Vol] 103 mg/dL Normal 74-106 [facility] Comment on above: Performed By: #### C MREP #### [facility] [address] [place] [address] Dr. Miguel Echols Potassium [Moles/Vol] 4.0 mmol/L Normal 3.4-5.0 [facility] Comment on above: Performed By: #### C MREP #### [facility] [address] [place] [address] Dr. Miguel Echols Protein [Mass/Vol] 7.2 g/dL Normal 6.1-8.2 [facility] Comment on above: Performed By: #### C MREP #### [facility] [address] [place] [address] Dr. Miguel Echols Sodium [Moles/Vol] 137 mmol/L Normal 137-145 [facility] Comment on above: Performed By: #### C MREP #### [facility] [address] [place] [address] Dr. Miguel Echols Urea nitrogen [Mass/Vol] 15.0 mg/dL Normal 9.0-20.0 [facility] Comment on above: Performed By: #### C MREP #### [facility] [address] [place] [address] Dr. Miguel Echols Urea nitrogen/Creatinine [Mass ratio] 17.2 mg/mg Normal [facility] Comment on above: Performed By: #### C MREP #### [facility] [address] [place] [address] Dr. Miguel Echols URIC ACID SERUMon 05-14-2021 Urate [Mass/Vol] 5.0 mg/dL Normal 3.5-8.5 [facility] Comment on above: Performed By: #### C MREP #### [facility] [address] [place] [address] Dr. Miguel Echols URINE MICROSCOPIC ONLYon AMORPHOUS CRYSTALS FEW Normal [facility] [facility] Comment on above: Performed By: #### MANSI KURTZRO #### [facility] [address] [place] [address] Dr. Miguel Echols BACTERIA NONE SEEN Normal NONE SEEN [facility] Comment on above: Performed By: #### Umang RODRIGUEZ UMICRO #### [facility] [address] [place] [address] Dr. Miguel Echols Bacteria identified Cx Nom (U) NOT INDICATED Normal [facility] Comment on above: Performed By: #### Umang RODRIGUEZ UMICRO #### [facility] [address] [place] [address] Dr. Miguel Echols CAST NONE SEEN Normal NONE SEEN [facility] Comment on above: Performed By: #### Umang RODRIGUEZ UMICRO #### [facility] [address] [address] [address] Miguel Echols Crystals LM Nom (Urine sed) SEEN Abnormal NONE SEEN [facility] Comment on above: Performed By: #### E RUR, UMICRO #### [facility] [address] [address] [address] Miguel Echols Epithelial cells LM Ql (Urine sed) RARE Normal NONE SEEN /RARE [facility] Comment on above: Performed By: #### E RUR, UMICRO #### [facility] [address] [place] [address] Dr. Miguel Echols MUCOUS NONE SEEN Normal NONE SEEN [facility] Comment on above: Performed By: #### E RUR, UMICRO #### [facility] [address] [place] [address] Dr. Miguel Echols RBC 2-5 Abnormal 0-2 [facility] Comment on above: Performed By: #### E MICHAEL UMICRO #### [facility] [address] [place] [address] Dr. Miguel Echols WBC 0-2 Abnormal NONE SEEN [facility] Comment on above: Performed By: #### E MICHAEL, UMICRO #### [facility] [address] [place] [address] Dr. Miguel Echols XR CHEST 1 Von 05-14-2021 XR CHEST 1 V CLINICAL HISTORY: Ch est pain. FINDINGS: Portable AP view of the chest obtained. Cardiomediastinal silhouette is normal. Lungs are clear, no evidence of infiltrate, suspicious nodule, or mass. No evidence of significant pleural fluid on this portable projection. No acute bony abnormality. IMPRESSION: No acute abnormality. Electronically authenticated by: KAMILLA GUTIÉRREZ Date: 2021-05-13 22:18 Normal [facility] CARDIAC FABIAN ADMITon 021 CK [Catalytic activity/Vol] 158 U/L Normal 55-170 [facility] Comment on above: Performed By: #### C MREP #### [facility] [address] [place] [address] Dr. Miguel Echols CK.MB [Mass/Vol] 1.56 ng/mL Normal <=2.37 [facility] Comment on above: Performed By: #### C MREP #### [facility] [address] [place] [address] Dr. Miguel Echols HSTROP 15.4 pg/mL Normal 4.0-42.2 [facility] Comment on above: Result Comment: CUT- OFF POINTS HAVE BEEN ESTABLISHED BASED ON THE FOURTH UNIVERSAL DEFINITIONS OF MYOCARDIAL INFARCTION. THE UPPER REFERENCE LIMIT (URL) OF TROPONIN, DEFINED THE 99TH PERCENTILE OF cTnI DISTRIBUTION IN A REFERENCE POPULATION, HAS BEEN CONFIRMED THE DECISION THRESHOLD FOR [place] DIAGNOSIS. Performed By: #### C MREP #### [facility] [address] [place] [address] Dr. Miguel Echols BRIGETTE 58.0 ng/mL Normal <=121.0 [facility] Comment on above: Performed By: #### C MREP #### [facility] [address] [place] [address] Dr. Miguel Echols CBC W MANUAL DIFFon 05-13-20 21 ATYPICAL LYMPH # 0.21 103/ul Normal [facility] Comment on above: Performed By: #### C MREP #### [facility] [address] [place] [address] Dr. Miguel Echols ATYPICAL LYMPH % 2 % Normal [facility] Comment on above: Performed By: #### C MREP #### [facility] [address] [place] [address] Dr. Miguel Echols BAND # 0.2 103/ul Normal 0.0-0.3 [facility] Comment on above: Performed By: #### C MREP #### [facility] [address] [place] [address] Dr. Miguel Echols BAND % 2 % Normal 0-5 [facility] Comment on above: Performed By: #### C MREP #### [facility] [address] [place] [address] Dr. Miguel Echols BASOM # 0.10 103/ul Normal 0.00-0.10 [facility] Comment on above: Performed By: #### C MREP #### [facility] [address] [place] [address] Dr. Miguel Echols BASOM % 1.0 % Normal 0.2-2.0 [facility] Comment on above: Performed By: #### C MREP #### [facility] [address] [place] [address] Dr. Miguel Echols BLAST # Normal [facility] Comment on above: Performed By: #### C MREP #### [facility] [address] [place] [address] Dr. Miguel Echols BLAST % Normal [facility] Comment on above: Performed By: #### C MREP #### [facility] [address] [place] [address] Dr. Miguel Echols CORRECTED WBC Normal 4.0-11.0 [facility] Comment on above: Performed By: #### C MREP #### [facility] [address] [place] [address] Dr. Miguel Echols EOS # 0.62 103/ul Normal 0.00-0.70 [facility] Comment on above: Performed By: #### C MREP #### [facility] [address] [place] [address] Dr. Miguel Echols EOS% 6.0 % Normal 0.9-7.0 [facility] Comment on above: Performed By: #### C MREP #### [facility] [address] [place] [address] Dr. Miguel Echols HCT 47.0 % Normal 42.0-54.0 [facility] Comment on above: Performed By: #### C MREP #### [facility] [address] [place] [address] Dr. Miguel Echols HGB 15.5 g/dl Normal 14.0-18.0 [facility] Comment on above: Performed By: #### C MREP #### [facility] [address] [place] [address] Dr. Miguel Echols LYMPHM # 2.47 103/ul Normal 1.20-3.80 [facility] Comment on above: Performed By: #### C MREP #### [facility] [address] [place] [address] Dr. Miguel Echols LYMPHM% 24.0 % Normal 20.5-60.0 [facility] Comment on above: Performed By: #### C MREP #### [facility] [address] [place] [address] Dr. Miguel Echols MCH 30.2 pg Normal 25.9-34.0 [facility] Comment on above: Performed By: #### C MREP #### [facility] [address] [place] [address] Dr. Miguel Echols MCHC 33.0 g/dl Normal 29.9-35.2 [facility] Comment on above: Performed By: #### C MREP #### [facility] [address] [place] [address] Dr. Miguel Echols MCV 91.6 fL Normal 80.0-94.0 [facility] Comment on above: Performed By: #### C MREP #### [facility] [address] [place] [address] Dr. Miguel Echols METAMYELOCYTE # Normal [facility] Comment on above: Performed By: #### C MREP #### [facility] [address] [place] [address] Dr. Miguel Echols METAMYELOCYTE % Normal [facility] Comment on above: Performed By: #### C MREP #### [facility] [address] [place] [address] Dr. Miguel Echols MONOM# 0.21 103/ul Critically low 0.30-0.80 [facility] Comment on above: Performed By: #### C MREP #### [facility] [address] [place] [address] Dr. Miguel Echols MONOM% 2.0 % Normal 1.7-12.0 [facility] Comment on above: Performed By: #### C MREP #### [facility] [address] [place] [address] Dr. Miguel Echols MPV 10.1 fL Normal 9.5-13.5 [facility] Comment on above: Performed By: #### C MREP #### [facility] [address] [address] [address] Miguel Echols MYELOCYTE # Normal [facility] Comment on above: Performed By: #### C MREP #### [facility] [address] [address] [address] Miguel Echols MYELOCYTE % Normal [facility] Comment on above: Performed By: #### C MREP #### [facility] [address] [address] [address] Miguel Echols NRBC Normal [facility] Comment on above: Performed By: #### C MREP #### [facility] [address] [place] [address] Dr. Miguel Echols PLT 249 103/ul Normal 150-450 [facility] Comment on above: Performed By: #### C MREP #### [facility] [address] [place] [address] Dr. Miguel Echols RBC 5.13 106/ul Normal 4.70-6.10 [facility] Comment on above: Performed By: #### C MREP #### [facility] [address] [place] [address] Dr. Miguel Echols RDW 12.4 % Normal 11.0-15.0 [facility] Comment on above: Performed By: #### C MREP #### [facility] [address] [place] [address] Dr. Miguel Echols SEG # 6.49 103/ul Normal 1.40-6.50 [facility] Comment on above: Performed By: #### C MREP #### [facility] [address] [place] [address] Dr. Miguel Echols SEG % 63.0 % Normal 43.0-75.0 [facility] Comment on above: Performed By: #### C MREP #### [facility] [address] [place] [address] Dr. Miguel Echols WBC 10.3 103/ul Normal 4.0-11.0 [facility] Comment on above: Performed By: #### C MREP #### [facility] [address] [place] [address] Dr. Miguel Echols LIPASEon 05-13-2021 Lipase [Catalytic activity/Vol] 182.0 U/L Normal 23.0-300.0 [facility] Comment on above: Performed By: #### C MREP #### [facility] [address] [place] [address] Dr. Miguel Echols PROF 14(COMP METB)on 021 Albumin [Mass/Vol] 3.3 g/dL Critically low 3.5-5.0 Th e [facility] Comment on above: Performed By: #### C MREP #### [facility] [address] [place] [address] Dr. Miguel Echols Albumin/Globulin [Mass ratio] 0.9 {ratio} Normal [facility] Comment on above: Performed By: #### C MREP #### [facility] [address] [place] [address] Dr. Miguel Echols ALP [Catalytic activity/Vol] 94 U/L Normal 38-126 [facility] Comment on above: Performed By: #### C MREP #### [facility] [address] [place] [address] Dr. Miguel Echols ALT [Catalytic activity/Vol] 30 U/L Normal 21-72 [facility] Comment on above: Performed By: #### C MREP #### [facility] [address] [place] [address] Dr. Miguel Echols Anion gap [Moles/Vol] 14.1 mmol/L Normal [facility] Comment on above: Performed By: #### C MREP #### [facility] [address] [place] [address] Dr. Miguel Echols AST [Catalytic activity/Vol] 18 U/L Normal 17-59 [facility] Comment on above: Performed By: #### C MREP #### [facility] [address] [place] [address] Dr. Miguel Echols Bilirubin [Mass/Vol] 0.2 mg/dL Normal 0.2-1.3 [facility] Comment on above: Performed By: #### C MREP #### [facility] [address] [address] [address] Miguel Echols Calcium [Mass/Vol] 8.6 mg/dL Normal 8.4-10.2 [facility] Comment on above: Performed By: #### C MREP #### [facility] [address] [address] [address] Miguel Echols Chloride [Moles/Vol] 103 mmol/L Normal 98-107 [facility] Comment on above: Performed By: #### C MREP #### [facility] [address] [address] [address] Miguel Echols CO2 [Moles/Vol] 26.8 mmol/L Normal 22.0-30.0 [facility] Comment on above: Performed By: #### C MREP #### [facility] [address] [address] [address] Miguel Echols Creatinine [Mass/Vol] 1.10 mg/dL Normal 0.66-1.25 [facility] Comment on above: Performed By: #### C MREP #### [facility] [address] [address] [address] Miguel Echols EGFR-AF CANADIAN 86 mL/min/1.73m2 Normal >=60 [facility] Comment on above: Performed By: #### C MREP #### [facility] [address] [address] [address] Miguel Echols EGFR-NON AF CANADIAN 71 mL/min/1.73m2 Normal >=60 [facility] Comment on above: Performed By: #### C MREP #### [facility] [address] [address] [address] Miguel Echols Globulin (S) [Mass/Vol] 3.5 g/dL Normal [facility] Comment on above: Performed By: #### C MREP #### [facility] [address] [address] [address] Miguel Echols Glucose [Mass/Vol] 138 mg/dL Critically high 74-106 [facility] Comment on above: Performed By: #### C MREP #### [facility] [address] [address] [address] Miguel Echols Potassium [Moles/Vol] 3.9 mmol/L Normal 3.4-5.0 [facility] Comment on above: Performed By: #### C MREP #### [facility] [address] [address] [address] Miguel Echols Protein [Mass/Vol] 6.8 g/dL Normal 6.1-8.2 [facility] Comment on above: Performed By: #### C MREP #### [facility] [address] [address] [address] Miguel Echols Sodium [Moles/Vol] 140 mmol/L Normal 137-145 [facility] Comment on above: Performed By: #### C MREP #### [facility] [address] [place] [address] Dr. Miguel Echols Urea nitrogen [Mass/Vol] 13.0 mg/dL Normal 9.0-20.0 [facility] Comment on above: Performed By: #### C MREP #### [facility] [address] [address] [address] Miguel Echols Urea nitrogen/Creatinine [Mass ratio] 11.8 mg/mg Normal [facility] Comment on above: Performed By: #### C MREP #### [facility] [address] [place] [address] Dr. Miguel Echols PROTIMEon 05-13-2021 INR Coag (PPP) [Relative time] 0.95 {INR} Normal [facility] Comment on above: Performed By: #### P SASCLC #### [facility] [address] [place] [address] Dr. Miguel Echols INR GUIDELINES SEE BELOW Normal [facility] Comment on above: Result Comment: BERNARDINO RED INR: 2.0 - 3.0 CONDITIONS NOT LISTED BELOW 2.5 - 3.5 FOR PROSTHETIC HEART VALVE REPLACEMENT 2.5 - 3.5 RECURRENT THROMBOSIS Performed By: #### P SASCLC #### [facility] [address] [place] [address] Dr. Miguel Echols PT Coag (PPP) [Time] 10.3 s Normal 9.0-11.6 [facility] Comment on above: Performed By: #### P SASCLC #### [facility] [address] [address] [address] Miguel Echols PTTon 05-13-2021 aPTT Coag (Bld) [Time] 26.3 s Normal 22.3-36.2 [facility] Comment on above: Performed By: #### P SASCLC #### [facility] [address] [address] [address] Miguel Echols Vital Signs Date Time Vital Sign Value Performing Clinician Facility 12-23-2022 09:30-0400 Body weight 133.36 kg Caden Cervantes Other [facility] Other 12-23-2022 09:30-0400 Diastolic blood pressure 91 mm[Hg] Caden Cervantes Other [facility] Other 12-23-2022 09:30-0400 Systolic blood pressure 142 mm[Hg] Caden Cervantes Other [facility] Other 06-04-2021 10:22-0500 Diastolic blood pressure 78 mm[Hg] Silvia Huerta [employer] Work Phone: Merged with [facility] And[facility] 250 DO Work Phone: 06-04-2021 10:22-0500 Systolic blood pressure 126 mm[Hg] Silvia Huerta Hoy Work Phone: Merged with [facility] 250 DO Work Phone: 06-04-2021 10:21-0500 Body height 185.42 cm Silvia Farahy Work Phone: Merged with [facility] [employer] 250 DO Work Phone: 06-04-2021 10:21-0500 Body mass index (BMI) [Ratio] 40.11 kg/m2 Silvia Huerta Hoy Work Phone: Merged with [facility] 250 DO Work Phone: 06-04-2021 10:21-0500 Body surface area Derived from formula 2.57 m2 Silvia Huerta Hoy Work Phone: Merged with [facility] 250 DO Work Phone: 06-04-2021 10:21-0500 Body weight 137.89 kg Silvia Huerta Hoy Work Phone: Merged with [facility] 250 DO Work Phone: 06-04-2021 10:21-0500 Diastolic blood pressure 86 mm[Hg] Silvia Huerta Hoy Work Phone: Merged with [facility] 250 DO Work Phone: 06-04-2021 10:21-0500 Heart rate 72 /min Silvia Huerta Hoy Work Phone: Merged with [facility] 250 DO Work Phone: 06-04-2021 10:21-0500 Systolic blood pressure 134 mm[Hg] Silvia Huerta Hoy Work Phone: Merged with [facility] 250 DO Work Phone: Encounters Encounter Date Encounter Type Care Provider Facility Start: 12-23-2022 End: 12-23-2022 ambulatory Caden Cervantes Other [facility] Other Start: 12-23-2022 Office outpatient ne w 30 minutes Caden Cervantes [facility] G[facility] Start: 07-23-2021 End: 07-24-[address] QUANG SILVA Facility:[facility] Start: 07-06-2021 End: 07-06-[address] QUANG SILVA Facility:[facility] Start: 06-26-2021 End: 06-27-[address] SILVIA BATISTA Facility:[facility] Start: 06-21-2021 Encounter for preprocedural laboratory examination DR QUANG SILVA [facility] Start: 06-19-2021 End: 06-20-[address] QUANG SILVA Facility:[facility] Start: 06-19-2021 End: 06-20-2021 Encounter for preprocedural laboratory examination DR QUANG SILVA Facility:[facility] Start: 06-04-2021 End: 06-05-2021 ambulatory MER NEIL Facility:[facility] Start: 06-04-2021 Rx Renewal Silvia Batista Work Phone: Merged with [facility] 250 DO Work Phone: Start: 06-04-2021 Office outpatient ne w 45 minutes Silvia Bradley Meenayinka Work Phone: Merged with [facility] 250 DO Work Phone: Start: 05-15-2021 Encounter for genera l adult medical examination without abnormal findings MER NEIL [facility] Start: 05-14-2021 End: 05-15-[address] SILVIA BATISTA Facility:[facility] Start: 05-13-2021 End: 05-14-[address] SILVIA BATISTA Facility:[facility] Start: 05-13-2021 End: 05-14-2021 Encounter for general adult medical examination without abnormal findings DR SILVIA BATISTA Facility:[facility] Procedures Date Procedure Procedure Detail Performing Clinician Operation on nose Silvia Batista Work Phone: Vasectomy Silvia Farahyinka Work Phone: NEGATED: Highlighted row has not occurred! Total colonoscopy Silvia Batista Work Phone: Plan of Treatment Date Care Activity Detail Author Start: 07-16-2021 FUV, Provider: Edouard Carr, Status: Pen, Time: 8:30 AM FUV, Provider: Edouard Carr, Status: Pen, Time: 8:30 AM [facility] with [facility] 250 DO Work Phone: Start: 06-25-2021 STRESS GERDA, Provider : PANKAJ RODRÍGUEZ NUCLEAR 01,[id number], Status: Pen, Time: 2:00 PM STRESS GERDA, Provider: PANKAJ KUNZI NUCLEAR ,[id number], Status: Pen, [facility]: 2:[facility] Work Phone: Payers Date Payer Category Payer Unknown [id number] 2.16.84 [id number] 1970 Unknown [id number] 2.16.84 [id number] 1970 Unknown [id number] 2.16.84 [id number] 1970 Unknown [id number] 2.16.84 [id number] 1970 Unknown [id number] 2.16.84 [id number] 1970 Unknown [id number] 2.16.84 [id number] 1970 Unknown [id number] 2.16.84 [id number] 1970 Unknown [id number] 2.16.84 [id number] 1959 Private Health Insurance [id number] 1959 Self-pay [id number] [facility] [id number] Unknown [employer] Social History Date Type Detail Facility Caffeine use Caffeine use [facility] 250 DO Work Phone: Comment on above: one pot daily.; 1 pack per day.; Sex Assigned At Sex Assigned At [facility] Other Evaluation note 12-23-2022 Note Date & Type Note Facility 12-23-2022 Evaluation note Encounter Date Diagnosis Assessment Notes Dec, Abdominal pain (ICD-10 - R10.9) Pt states that he has had abdominal discomfort/ pain for about 2 years Pt states he had a colon/ egd done 2 years ago. Labs and imaging ordered Pt states he has one bowel movement a day Pt advised to try the low fodmap diet Pt advised to take prilosec 40mg daily Pt RTO in 2 months [facility] Other Clinical Note 07-06-2021 Note Date & Type Note Facility 07-06-2021 Note OPERATIVE NOTE PREOPERATIVE DIAGNOSIS: Abdominal pain. POSTOPERATIVE DIAGNOSIS: Gastritis, sigmoid diverticulosis. PROCEDURE PERFORMED: EGD with biopsy x1 from the antrum of the stomach for H. pylori testing, colonoscopy. ANESTHESIA: MAC. DISPOSITION: To the holding area in fair condition. PROCEDURE: Patient was brought into the endoscopy suite, placed in the left lateral decubitus position. He was sedated by the nurse pharmacy benefits coordinator. Bite block was placed in his mouth. Gastroscope was lubricated, advanced through the bite block, into the oropharynx and down the esophagus. There was no evidence of any stricture. Upon entering the stomach, gastric mucosa was moderately inflamed. There was no evidence of any ulcers. He had some streaky erosions in the pre-pyloric area. The endoscope was advanced through the pylorus and into the duodenum. The duodenal bulb appeared normal. The scope was then removed. Biopsy from the antrum was taken for H. pylori testing. There was no evidence of any gastric or esophageal varices. Next, the operating cart was turned. A digital rectal exam was performed which showed no evidence of any mass, hemorrhoids or fissures. The colonoscope was lubricated, introduced into the anus and advanced slowly. In the sigmoid colon, he had diverticulosis. There was no evidence of diverticulitis. The colonoscope continued to be advanced until reaching the cecum. The cecal markings were identified. The scope was then removed and it was retroflexed in the rectum. There was no evidence of any lesions. Patient tolerated procedure without any difficulty. [facility] Signed and Approved by: DR QUANG SILVA . 07/16/2021 15:26:00 [facility] Clinical Note 07-06-2021 Note Date & Type Note Facility 07-06-2021 Note OPERATIVE NOTE ADDENDUM: POSTOPERATIVE DIAGNOSIS: Colonic polyp. PROCEDURE: Colonoscopy with snare polypectomy. [facility] Signed and Approved by: DR QUANG SILVA . 08/13/2021 07:13:00 [facility] History general Narrative - Reported Note Date & Type Note Facility History general Narrative - Reported Type Medical History high blood pressure Medical History type II diabetes Surgical History nose reset Surgical History tonsillectomy [facility] Other Family History Unknown Family Member Name Dates Details Family history of malignant neoplasm: Mother(V16.9, Z80.9) Status:Active Family history of hypertensi on: Mother, Father, Brother(V17.49, Z82.49) Status:Active Family history of diabetes m ellitus: Father(V18.0, Z83.3) Status:Active Kidney stones, calcium oxala te: Brother Status:Active Unknown Family Member Name Dates Details Family history of malignant neoplasm: Mother(V16.9, Z80.9) Status:Active Family history of hypertensi on: Mother, Father, Brother(V17.49, Z82.49) Status:Active Family history of diabetes m ellitus: Father(V18.0, Z83.3) Status:Active Kidney stones, calcium oxala te: Brother Status:Active Unknown Family Member Name Dates Details Family history of malignant neoplasm: Mother(V16.9, Z80.9) Status:Active Family history of hypertensi on: Mother, Father, Brother(V17.49, Z82.49) Status:Active Family history of diabetes m ellitus: Father(V18.0, Z83.3) Status:Active Kidney stones, calcium oxala te: Brother Status:Active Summary Purpose Advance Directives No Advanced Directives Records FoundNo Advanced Directives Records Found Additional Source Comments (unrecognized sect ion and content) No Status Records FoundNo Status Records Found INFORMATION SOURCE (unrecogn ized section and content) DATE CREATED AUTHOR 06/04/2021 [employer] DATE CREATED AUTHOR AUTHOR'S ORGANIZ ATION 09/08/2021 [facility] REASON FOR VISIT (unrecogniz ed section and content) Patient is here for abdomina l pain he was referred by [facility] FOR RECORDS PERTAINING TO PATIENTS WHO ARE OR HAVE BEEN ENROLLED IN A CHEMICAL DEPENDENCY/SUBSTANCEABUSE PROGRAM, SOME INFORMATION MAY BE OMITTED. This clinical summary was aggregated from multiple sources. Caution should be exercised in using it in the provision of clinical care. This summary normalizes information from multiple sources, and as a consequence, information in this document may materially change the coding, format and clinical context of patient data. In addition, data may be omitted in some cases. CLINICAL DECISIONS SHOULD BE BASED ON THE PRIMARY CLINICAL RECORDS. [facility]. provides no warranty or guarantee of the accuracy or completeness of information in this document.
[2024-05-17 12:37] LABS: Estimated Average Glucose 111 mg/dL; Glycohemoglobin A1C 5.5 % (4.5-6.2)
[2024-05-17 12:40] LABS: Alanine Aminotransferase 23 U/L (16-63); Albumin Level 3.5 g/dL (3.4-5.0); Alkaline Phosphatase 95 U/L (46-116); Anion Gap 13.2; Aspartate Amino Transferase 20 U/L (15-37); BUN Creatinine Ratio 13.8; Bilirubin Total 0.7 mg/dL (0.2-1.0); Calcium 8.9 mg/dL (8.5-10.1); Carbon Dioxide 26.2 mmol/L (21.0-32.0); Chloride 105 mmol/L (98-107); Chol HDL Ratio 5.3; Cholesterol 224 mg/dL (<=200); Estimated GFR (African America >60 (>=60 mL/min/1.73m^2); Estimated GFR (Non-African Ame >60 (>=60 mL/min/1.73m^2); Globulin 3.4 g/dL; Glucose 112 mg/dL (74-106); HDL Cholesterol 42 mg/dL (40-60); Potassium 4.4 mmol/L (3.5-5.1); Sodium 140 mmol/L (136-145); Total Protein 6.9 g/dL (6.4-8.2); Triglycerides 196 mg/dL (<=150); VLDL CHOLESTEROL 39.2 mg/dL
== END 2024-05-17 11:25 | disposition home or self-care (01) ==
LOC: LAB 11:28
PROVIDERS: PCP Family Medicine; Visit Provider Family Medicine
DX: Z00.00 Encounter for general adult medical examination without abnormal findings (principal); R10.11 Right upper quadrant pain; I10 Essential (primary) hypertension
CPT/HCPCS: 36415; 80053; 80061; 83036

== ENCOUNTER 2025-03-17 07:52 | Outpatient (OUT) | payer OTHER, SELFPAY ==
--- OUTSIDE RECORDS SUMMARY | 2025-03-17 07:56 | XMS_ITS | Encounter Summary ---
Author Organization [facility] Address [address] [facility] [place] [address] Care Team Providers Care Chef Manager Name Role Phone Unavailable Primary Care Provider Unavailabl e Reason for Visit * ReasonCommentsMed Refill Encounter Details DateTypeDepartmentCare Team (Latest Contact Info)Flxngblkrqq64/26/2025Refill [facility] [address] [place] [address] Myron Kay, [address] Valentine Lai, [facility] Gastroesophageal reflux disease, unspecified whether esophagitis present Social History Tobacco UseTypesPacks/DayYears UsedDateSmoking Tobacco: Never AssessedSex and Gender InformationValueDate RecordedSex Assigned at BirthNot on fileLegal Sex Male07/31/2022 11:15 PM EDTGender IdentityNot on fileSexual OrientationNot on filedocumented as of this encounter Plan of Treatment Not on file documented as of this encounter Visit Diagnoses Diagnosis Gastroesophageal reflux disease, unspecified whether esophagitis present documented in this encounter
--- OUTSIDE RECORDS SUMMARY | 2025-03-17 07:56 | XMS_ITS | Clinical Summary ---
Author Organization [facility] Address [address] [facility] [place] [address] Care Team Providers Care Supervisor Phosphatic Fertilizer Name Role Phone Unavailable Primary Care Provider Unavailabl e Medications MedicationSigDispense QuantityRefillsLast FilledStart DateEnd DateStatus etodolac (Lodine) 500 MG tablet Indications:ArthritisTAKE 1 TABLET BY MOUTH TWICE A DAY NEEDED 60 tablet 5Active omeprazole (PriLOSEC) [address] capsule Indications:Gastroesophageal reflux disease, unspecified whether esophagitis presentTAKE 1 CAPSULE BY MOUTH EVERY DAY 90 capsule 5Active omeprazole (PriLOSEC) [address] capsule Indications:Gastroesophageal reflux disease, unspecified whether esophagitis presentTAKE 1 CAPSULE BY MOUTH EVERY DAY 90 capsule [id number] etodolac (Lodine) 500 MG tablet Indications:ArthritisTAKE 1 TABLET BY MOUTH TWICE A DAY NEEDED 60 tablet 51Discontinued Encounters DateTypeDepartmentCare XzdxVrzxxcmxsrk92/26/2025Refill [facility] [address] [place] [address] Myron Kay DO Gastroesophageal reflux disease, unspecified whether esophagitis present 02/27/2025Refill [facility] [address] [place] [address] Myron Kay DO Arthritisfrom Last 3 Months Social History Tobacco UseTypesPacks/DayYears UsedDateSmoking Tobacco: Never AssessedSex and Gender InformationValueDate RecordedSex Assigned at BirthNot on fileLegal Sex Male07/31/2022 11:15 PM EDTGender IdentityNot on fileSexual OrientationNot on file Last Filed Vital Signs Vital SignReadingTime TakenCommentsBlood Emuhcsvo939/8801 12:00 PM EST Pulse--Temperature--Respiratory Rate--Oxygen Saturation--Inhaled Oxygen Concentration--Tfwdfl554 kg (303 lb)06/11/2021 12:00 PM TGAQgptrx210.4 cm (6' 1 )06/11/2021 12:00 PM ESTBody Mass Index39.98006/11/2021 12:00 PM EST Plan of Treatment Not on file
--- OUTSIDE RECORDS SUMMARY | 2025-03-17 07:56 | XMS_ITS | Clinical Summary ---
Author Organization [facility] Address [address] [place] [address], [address] [place] [address] Care Team Providers Care Legislative Analyst Name Role Phone Unavailable Primary Care Provider Unavailabl e Social History Tobacco UseTypesPacks/DayYears UsedDateSmoking Tobacco: Never AssessedSex and Gender InformationValueDate RecordedSex Assigned at BirthNot on fileLegal Sex Male06/28/2012 2:56 AM ESTGender IdentityNot on fileSexual OrientationNot on file Plan of Treatment Not on file
--- OUTSIDE RECORDS SUMMARY | 2025-03-17 07:56 | XMS_ITS | Patient Health Record ---
Author Organization [facility] [place] Address [address] [place] [address] Care Team Providers Care Rn Acute Care Name Role Phone Jan Batista Primary Care Provider Allergies No Known Allergies Results Component Value Reference Range Notes PROF 14(COMP METB) Reviewed date:05/17/2024 08:23:50 PM Interpretation: Performing Lab: Notes/Report: [facility] , Sodium 140 136-145 mmol/L Potassium4.43.5-5.1 mmol/VYohligtr45070-055 mmol/LCarbon Onuweaa97.221.0-32.0 mmol/LAnion Gap13.3Foblxqn78408-678 mg/dLBlood Urea Ksizagjd71.07.0-18.0 mg/dL Creatinine0.940.70-1.30 mg/dLEstimated GFR ( Candace>60>=60 mL/min/1.73m 2Estimated GFR (Non- Connie>60>=60 mL/min/1.73m 2BUN Creatinine Ratio13.8 Calcium8.98.5-10.1 mg/dLBilirubin Total0.70.2-1.0 mg/dLAspartate Amino Buhmduowicf5971-61 U/LAlanine Ucwgmijhyfalbwji5172-27 U/LAlkaline Ljsmnfqiqrl29 46-116 U/LTotal Protein6.96.4-8.2 g/dLAlbumin Level3.53.4-5.0 g/dLGlobulin3.4 Albumin Globulin Ratio1.0Performing Lab:see noteML - [facility] LB LIPID PROFILE Reviewed date:05/17/2024 08:23:50 PM Interpretation: Performing Lab: Notes/Report: [facility] ,Vnfwqsiwqdeok803<=150 mg/oSYrifdzrmyju418<=200 mg/dLHDL Wwfllntdybp3596-54 mg/dL <40 mg/dl - HIGH CARDIOVASCULAR RISK > or =60 mg/dl - LOW CARDIOVASCULAR RISK LDL Cholesterol Qqrdsipfzr347.0 160-189 mg/dl HIGH >190 mg/dl VERY HIGH 130-159 mg/dl BORDERLINE HIGH 100-129 mg/dl NEAR OR ABOVE OPTIMAL <100 mg/dl OPTIMAL VLDL RLTMFRMOUEJ88.2Chol HDL Ratio5.3 7.1 - 11.0 MODERATE RISK 3.3 - 4.4 LOW RISK 4.4 - 7.1 AVERAGE RISK >11.0 HIGH RISK Performing Lab:see note - [facility] LBGLYCOHEMOGLOBIN A1C Reviewed date:05/17/2024 08:23:50 PM Interpretation: Performing Lab: Notes/Report: [facility] ,Glycohemoglobin A1C5.54.5-6.2 % ADA RECOMMENDED LIMIT 4.0 - 6.0 ACTION SUGGESTED > 7.0 ADA THERAPEUTIC TARGET < 7.0 Estimated Average Qyywick842Pkyfewkngn Lab:see note - [facility] LB Reason For Referral No Information Medications Medication SIG (Take, Route, Frequency, Duration) Notes Start Date End Date Status Hyoscyamine Sulfate 0.125 MG 1-2 tabs SL SL ever y 4 hrs PRN abd pain 4ActiveCPAP -use as directed with previous setting; Duration: 365 days 5ActiveAmoxicillin-Pot Clavulanate 875-125 MG1 tablet Orally every 12 hrs; Duration: 10 days5ActiveMetoprolol Tartrate 25 MG1 tablet with food Orally Twice a day; Duration: 30 daysActivePravastatin Sodium 20 MGTAKE 1 TABLET BY MOUTH EVERY DAY FOR 30 DAYS; Duration: 90ActiveOmeprazole 20 MG1 capsule 1/2 to 1 hour before morning meal Orally Once a dayActiveNitroglycerin 0.4 MG1 sl Sublingual Q 5 min as needed for chest pain5Active Social History Tobacco Use: Social History Observation Description Date Details (start date - stop date) Current Smoker 05/19/1984 - NA Tobacco Use/Smoking Question Answer Notes Patient is a current smoker When did you start smoking?05/19/1984How often do you smoke cigarettes?every day How many cigarettes a day do you smoke?11-20How soon after you wake up do you smoke your first cigarette?within 5 minutesAre you interested in quitting?Not ready to quitAlcohol Screen (Audit-C) Question Answer Notes Did you have a drink containing alcohol in the p ast year? Yes How often did you have 6 or more drinks on one occasion in the past year?Never (0 point)How many drinks did you have on a typical day when you were drinking in the past year?1 or 2 drinks (0 point)How often did you have a drink containing alcohol in the past year?Weekly (3 points)Xrtjci9DvpxemccxhvwbaXvgtsykkLNOTR-H (Standard) Question Answer Notes Did you have a drink containing alcohol in the p ast year? Yes How often did you have six or more drinks on one occasion in the past year?Less than monthly (1 point)How many drinks did you have on a typical day when you were drinking in the past year?3 or 4 drinks (1 point)How often did you have a drink containing alcohol in the past year?2 to 4 times a month (2 points)Points4 InterpretationPositive Problems Problem Type SNOMED Code ICD Code Onset Dates Problem Status W/U Status Risk Notes Problem Essential hypertension (31982204 ) Essential (primary) hypertension (I10) ActiveconfirmedProblemHypertension (53399059)Hypertension (I10)Activeconfirmed ProblemSleep apnea (62786496)Sleep apnea (G47.30)ActiveconfirmedProblemEczema (02881510)Eczema (L30.9)ActiveconfirmedProblemWell adult (107549975)Well adult (Z00.00)ActiveconfirmedProblemRight upper quadrant pain (859519710)Right upper quadrant abdominal pain (R10.11)Activeconfirmed Vital Signs Blood pressure diastolic 80 mm Hg 02/25/2025 Lusuoq70 in02/25/2025lood pressure ffffvikp775 mm Hg02/25/20255705Szkfgz793 lbs 02/25/2025BMI39.71 kg/m202/25/2025 Procedures Procedure Date Ordered Date Performed Result Body Sit e ECG with Interpretation 02/25/2025 N/A Encounters Encounter Location Date Provider Diagnosis [facility] [address] [place] [address] 05/17/2024 Jan Hoy Hypertension I10 and Right upper quadrant abdominal pain R10.11 [facility] [address] [place] [address] 09/03/2024 Jan Hoy Sleep apnea G47.30 a nd Eczema L30.9 [facility] [address] [place] [address] 02/25/2025 Jan Hoy Chest pain R07.9 and Acute bronchitis, unspecified organism J20.9 [facility] [address] [place] [address] 05/17/2024 Jan Hoy Assessments Encounter Date Diagnosis (ICD Code) Assessment Notes Treatment Notes Treatment Clinical Notes Section Notes 05/17/2024 Hypertension (ICD-10 - I10) 4Right upper quadrant abdominal pain (ICD-10 - R10.11)09/03/2024Sleep apnea (ICD-10 - G47.30)09/03/2024Eczema (ICD-10 - L30.9)02/25/2025hest pain (ICD-10 - R07.9)5Acute bronchitis, unspecified organism (ICD-10 - J20.9)Rest and drink more liquids, especially water. You may use a humidifier or vaporizer to help keep the drainage moist. Gvqk-jsh-ugjecbe Nasal Saline may help the stuffy and runny nose. Use Ibuprofen and or Tylenol as needed for fever, chills, body aches or pain. Children 5 years old should not be given ffbj-mje-hhwgmcn cough and cold medications such as guaifenesin and dextromethorphan. If you're over age 5, you may try cixs-jni-plqikvs cold medications such as guaifenesin and dextromethorphan, or multi-symptom cold reliever such as Dayquil to help reduce the symptoms. Antibiotics have been pre scribed. You should take these until completed and follow the directions. Antibiotics can sometimescause upset stomach, and in rare cases, serious allergic reactions or serious gastrointestinal problems. If you start having severe abdominal pain, severe vomiting, or bloody diarrhea, you should be r eevaluated by your physician or urgent care immediately. Follow up with your Primary Care Provider or return to clinic if symptoms do not improve within 3-5 days. If you develop severe symptoms such as shortness of breath, repeated vomiting, coughing up blood, or chest pain you should go to the emergency room or call 911 Plan Of Treatment Pending Test Test Name Order Date CMP (COMPLETE METABOLIC PANEL) 3 HEMOGLOBIN A1C (GLYCO) 10/18/2022 INSULIN, TOTAL 10/18/2022 LIPID PANEL (CHOL/TRIG/HDL/LDL) 10/19/19 23 CBC WITH DIFF 10/18/2022 PSA, PROSTATE-SPECIFIC ANTIGEN 3 URIC ACID 10/18/2022 ECG with Interpretation 02/25/2025 PSA, TOTAL 11/21/2023 Treadmill Stress Test with Nuclear Imagi ng 02/25/2025 STOOL OCCULT BLOOD 10/18/2022 THYROID PROFILE WITH TSH 11/21/2023 US ABD 05/17/2024 THYROID PANEL (T4/TSH/FREE T3) 3 Insurance Providers Payer Name Payer Address Payer Phone Subscriber Number Group Number Insured Name Patient Relationship to Insured Coverage Start Date Coverage End Date [employer]I [address] [facility] [place] [address] [id number] Saeid Flores - patient is the insured Medical (General) History Medical History History ICD Code Plantar fascia syndrome M72.2 Osteoarthritis M19.90 Diabetes mellitus type 2 in nonobese E11 .9 Hypertension I10 Apnea, sleep G47.30 Surgical History Surgery Date(Month/Year) vasectomy NoseColonoscopy
--- OUTSIDE RECORDS SUMMARY | 2025-03-17 07:56 | XMS_ITS | Clinical Summary ---
Author Organization [facility] Address [address] [place] [address] Phone Care Team Providers Care Engine Hostler Name Role Phone Abhilash Batista MD Primary Care Provider [phone] Social History Tobacco UseTypesPacks/DayYears UsedDateSmoking Tobacco: Never AssessedSex and Gender InformationValueDate RecordedSex Assigned at BirthNot on fileLegal Sex Male04/12/2022 11:40 AM ESTGender IdentityNot on fileSexual OrientationNot on file Last Filed Vital Signs Vital SignReadingTime TakenCommentsBlood Wfokbxvc291/78006/04/2021 10:22 AM EST Djaci0878/17/2022 10:21 AM ESTTemperature--Respiratory Rate--Oxygen Saturation-- Inhaled Oxygen Concentration--Yheuwp290 kg (304 lb)06/04/2021 10:21 AM ESTHeight 185.4 cm (6' 1 )06/04/2021 10:21 AM ESTBody Mass Index40.11006/04/2021 10:21 AM EST Plan of Treatment Not on file Care Teams Team MemberRelationshipSpecialtyStart DateEnd Date Abhilash Batista MD [address] [place] [facility] [place] [address] PCP - General05/19/99
--- OUTSIDE RECORDS SUMMARY | 2025-03-17 07:57 | XMS_ITS | CCD ---
Author Organization [facility] Care Team Providers Care Deportation Officer Name Role Phone Silvia Batista Unavailable Unavailable Unavailable MER NEIL Admitting Unavailable MER NEIL Attending Unavailable BAIRON, DR VEGA Primary Care Unavailable Rishi Sorensen Consulting Unavailable MER NEIL Consulting Unavailable BAIRON, [...] Unavailable MEENAY, DR VEGA Primary Care Unavailable BAIRON, DR [...] Unavailable Caden Cervantes Unavailable Medications Current Medications MedicationDrug Class(es)DatesSig (Normalized)Sig (Original)Aspir-81 (1 source)Aspir-81 ActiveMetoprolol (1 source)beta-Adrenergic BlockerLopressor 10mg Activeomeprazole 40 mg delayed release oral capsule (1 source)Proton Pump InhibitorStart: 28-76-1523jpdq 1 capsule by mouth once dailyOmeprazole 40 MG 1 capsule 30 minutes before morning meal Orally Once a day for 30 days Dec, Active Completed/Discontinued Medications MedicationDrug Class(es)DatesSig (Normalized)Sig (Original)aspirin 81 mg delayed release oral tablet (3 sources)Platelet Aggregation Inhibitor, Nonsteroidal Anti-inflammatory Drug take 1 tablet by mouth once dailyAspirin EC 81 MG Oral Tablet Delayed Release TAKE 1 TABLET DAILY. Quantity: 0 Refills: 0 Ordered: 04-Jun-2021 DO Active famotidine 20 mg oral tablet (2 sources)Histamine-2 Receptor AntagonistStart: 76-36-5497csjn 1 tablet by mouth at bedtimeFamotidine 20 MG Oral Tablet TAKE 1 TABLET AT BEDTIME. Quantity: 90 Refills: 3 Ordered: 05-Vsp-2212WdIcwhcEdouard Carr MD Start : 04-Jun-2021 Active new startlisinopril 20 mg oral tablet (3 sources)Angiotensin Converting Enzyme InhibitorLisinopril 20 MG Oral Tablet Quantity: 0 Refills: 0 Ordered: 04-Jun-2021 DO Activepantoprazole (1 source)Proton Pump InhibitorProtonix Not-Takingpravastatin sodium 20 mg oral tablet (3 sources)HMG-CoA Reductase InhibitorStart: 89-90-5359egbr 1 tablet by mouth two times weeklyPravastatin Sodium 20 MG Oral Tablet one tablet twice weekly Quantity: 24 Refills: 3 Ordered: 05-Jun-2021 Edouard Carr MD Start : 04-Jun-2021 Active new startPravachol Active Problems Active Problems Problem ClassificationProblemDateDocumented DateEpisodic/ChronicAbdominal pain (8 sources)Epigastric pain; Translations: [Unspecified abdominal pain]Onset: 44-48-7321GpwrqqtoIfrmwtupb of lipid metabolism (3 sources)Hyperlipidemia; Translations: [Other and unspecified hyperlipidemia] ChronicDiverticulosis and diverticulitis (1 source)Diverticulosis of large intestine without perforation or abscess without bleeding; Translations: [DVRTCLOS LG INT NO PERF/ABSC W/O BL]Onset: 88-95-8097CkqqigjGhhpyorlss disorders (4 sources)Gastroesophageal reflux disease; Translations: [Esophageal reflux] Onset: 10-87-0289ApplvfyFbvjakhqd hypertension (4 sources)Benign essential hypertension; Translations: [Benign essential hypertension]Onset: 29-47-3484GltiaugUsakrnhon and duodenitis (1 source)Gastritis, unspecified, without bleeding; Translations: [GASTRITIS UNS WITHOUT BLEEDING]Onset: 92-56-1422AzbcrmmbKiaag and unspecified benign neoplasm (1 source)Benign neoplasm of colon, unspecified; Translations: [BENIGN NEOPLASM COLON UNSPECIFIED]Onset: 55-75-5889BqjezbtkEpihx liver diseases (1 source)Fatty (change of) liver, not elsewhere classified; Translations: [FATTY CHANGE LIVER NEC]Onset: 91-32-6286EobrsmePtjdl nutritional; endocrine; and metabolic disorders (3 sources)Body mass index 40+ - severely obese; Translations: [Morbid obesity] ChronicOther screening for suspected conditions (not mental disorders or infectious disease) (5 sources)Encounter for screening for malignant neoplasm of colon; Translations: [Encounter for screening formalignant neoplasm of prostate]Onset: 77-22-9067PnabwareVkywsneyy-related disorders (4 sources)Smoker; Translations: [Tobacco use disorder]Onset: 46-24-3080Ptdsbir Comment on above:1 pack per day.;Unclassified (4 sources)CONTACT W/AND (SUSP) EXPOS COVID-19; Translations: [CONTACT W/AND (SUSP) EXPOS COVID-19]Onset: 39-97-2135Mpmvc infection (1 source)COVID-19; Translations: [COVID-19]Onset: 06-21-2021 Past or Other Problems Problem ClassificationProblemDateDocumented DateEpisodic/ChronicGenitourinary symptoms and ill-defined conditions (1 source)Hematuria, unspecified; Translations: [HEMATURIA UNSPECIFIED]Onset: 73-45-0638VkodqfpnManrcfoczct chest pain (4 sources)Chest pain; Translations: [Chest pain, unspecified]Onset: 05-15-2021 EpisodicOther aftercare (1 source)Other penitentiary (current) drug therapy; Translations: [OTH LONG-TERM CURRENT DRUG THERAPY]Onset: 08-00-1673FtxxbdwiEqptq aftercare (1 source)[facility] (current) use of aspirin; 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]Onset: 27-20-0083MgliqfaqGhkognocmjp; intervertebral disc disorders; other back problems (1 source)Dorsalgia, unspecified; Translations: [DORSALGIA UNSPECIFIED]Onset: 52-18-4800FditqjylRhwqvcsneuzs (1 source)CONTACT W/AND (SUSP) EXPOS COVID-19; Translations: [CONTACT W/AND (SUSP) EXPOS COVID-19]Onset: 57-64-7810Ebxmstx tract infections (4 sources)Urinary tract infection, site not specified; Translations: [UTI SITE NOT SPECIFIED]Onset: 24-88-6199Vgfpbgvq Results Test NameValueInterpretationReference RangeFacilityNM HEPATOBILIARY SCAN W EFon 21-30-9000GW HEPATOBILIARY SCAN W EFHIDA SCAN WITH GALLBLADDER EJECTION FRACTION HISTORY: Abdominal Pain. COMPARISON: Ultrasound 06/04/2021. METHOD: Following IV injection of 5. mCi of exdjuuggfy-32g-Jfgcrewy, anterior imaging of the abdomen was acquired [...] Electronically authenticated by: KIMBERLY SEALS Date: 2021-07-23 17:04No[facility] PYLORI TISSUEon 07-06-2021H PYL TISSUE, UREASENegativeNormal NEGATIVEThe [facility] HospitalComment on above:Performed By: #### HPYLT #### [facility] [address] [place] [address] Dr. Miguel Gar-19 PCR ([facility])on 50-72-1490TIRI-CoV-2 (COVID-19) RNA COURTNEY+probe Ql (Unsp spec)Not detectedNormalNOT DETECTEDThe [facility] Comment on above:Result Comment: This test is not yet approved or cleared by the [place] FDA. When there are no FDA-approved or cleared tests available, and other criteria are met, FDA can make tests available under an emergency access mechanism called an Emergency Use Authorization (EUA). The EUA for this test is supported by the [place] of Health and Human Service's (HHS's) declaration that circumstances exist to justify the emergency use of in vitro diagnostics for the detection and/or diagnosis of the virus that causes COVID- 19. This EUA will remain in effect (meaning [...] of clinical signs and symptoms consistent with SARS-CoV-2.Performed By: #### CVDTB #### [facility] [address] [place] [address] Dr. Miguel Gar-19 PCR ([facility])on 53-64-6509BPVA-CoV-2 (COVID-19) RNA COURTNEY+probe Ql (Unsp spec)DetectedCritically abnormalNOT DETECTEDThe [facility] HospitalComment on above:Result Comment: This test is not yet approved or cleared by the [place] FDA. When there are no FDA-approved or cleared tests available, and other criteria are met, FDA can make tests available under an emergency access mechanism called an Emergency Use Authorization (EUA). The EUA for this test is supported by the [place] of Health and Human Service's (HHS's) declaration [...] no longer be used). Performed By: #### CVDTBH #### [facility] [address] [place] [address] Dr. Miguel Martines SINGLE QUAD RT UPPERon 60-12-5353EP SINGLE QUAD RT UPPEREXAM: Right upper quadrant ultrasound REASON FOR EXAM: [...] abnormality is seen. Electronically authenticated by: RISHI SORENSEN Date: 2021-06-04 22:15NormalThe [place] HospitalCULTURE URINEon 06-57-2176QDXZRLW URINECulture Observations: LIGHT GROWTH OF MIXED SKIN MARISA. NO POTENTIAL PATHOGENS SEEN.NormalThe [facility] HospitalComment on above:Performed By: #### PSASCLC #### [facility] [address] [address] [address] Miguel Moe Visit (Cardiology)on 06-44-1190Satlls-up visit Diagnoses/Problems Assessed Chest pain (786.50) (R07.9) [...] we can help. You may also call 4-945-QUBBAl-Nabil Food IndustriesNOW for free resources and assistance.; Status:Complete; Done: 04Jun2021 Patient Instructions By signing my name below, Chiquita Vázquez LPN, Scribe, attest that this documentation has been prepared under the direction and in the presence of Dr. Edouard Carr MD. All medical record entries made by the Winnie were at my direction and personally dictated by me. Shayna reviewed the chart and agree that the [...] ultimately went to the emergency room in [place] after an hour of pain. He had about 3 or 4 more hours of pain in the emergency room. They kept him for 7 hours and did multiple EKGs and 3 sets of cardiac enzymes, all of which were normal except for an incomplete right bundle branch block. He presents now for evaluation. Detailed history and suggest to me that his symptomatology actuallysounds like gallbladder colic and/or acid reflux with [...] which includes hypertension hyperlipidemia and tobacco use thata treadmill test should be done and I [...] loss and no no (more content not included)...NormalUH [facility] Tobacco Screening.on 37-06-1693Jzzgpru use status CPHSa) [facility] DO Work Phone: UA RANDOM W/MICROSCOPICon 05-04-0008JYDMFFATBAMP SEEN NormalNONE SEENSamaritan HospitalComsinai-grace hospital on above:Performed By: #### PSASCLC #### [facility] [address] [place] [address] Dr. Miguel EcholsBilirubin Ql (U)SMALLAbnormalNEGATIVESamaritan HospitalComment on above:Performed By: #### PSASCLC #### [facility] [address] [place] [address] Dr. Miguel EcholsCASTNONE SEENNormalNONE SEENSamaritan HospitalComsinai-grace hospital on above:Performed By: #### PSASCLC #### [facility] [address] [place] [address] Dr. Miguel EcholsClarity (U)CLEARNormalCLEARSamaritan HospitalComment on above: Performed By: #### PSASCLC #### [facility] [address] [place] [address] Dr. Miguel Zavalalor (U)LT. YELLOWNormalYELLOWSamaritan HospitalComment on above:Performed By: #### PSASCLC #### [facility] [address] [place] [address] Dr. Miguel EcholsCrystals LM Nom (Urine sed)NONE SEENNormalNONE SEENSamaritan HospitalComsinai-grace hospital on above:Performed By: #### PSASCLC #### [facility] [address] [place] [address] Dr. Rivera ChangEpithelial cells LM Ql (Urine sed)RARENormalNONE SEEN /RARESamaritan HospitalComment on above:Performed By: #### PSASCLC #### [facility] [address] [place] [address] Dr. Miguel EcholsGlucose Ql (U)NegativeNormalNEGATIVESamaritan HospitalComment on above:Performed By: #### PSASCLC #### [facility] [address] [place] [address] Dr. Miguel EcholsHemoglobin Ql (U)NegativeNormalNEGATIVESamaritan Hospital Comment on above:Performed By: #### PSASCLC #### [facility] [address] [address] [address] Miguel Brenner Ql (U)NegativeNormalNEGATIVESamaritan HospitalComment on above:Performed By: #### PSASCLC #### [facility] [address] [address] [address] Miguel EcholsLEUKOCYTESNegativeNormalNEGATIVEThe [facility] HospitalComment on above:Performed By: #### PSASCLC #### [facility] [address] [place] [address] Dr. Miguel OreillyCOUSNONUmang SEENNormalNONE SEENSamaritan HospitalComment on above:Performed By: #### PSASCLC #### [facility] [address] [place] [address] Dr. Miguel Larry Ql (U)NegativeNormalNEGATIVESamaritan HospitalComment on above:Performed By: #### PSASCLC #### [facility] [address] [place] [address] Dr. Miguel EcholspH (U)7.5 [pH]Normal5-9The [facility] HospitalComment on above: Performed By: #### PSASCLC #### [facility] [address] [place] [address] Dr. Miguel EcholsYzchsSSY7-9Lsayny7-9Nsa [facility] HospitalComment on above:Performed By: #### PSASCLC #### [facility] [address] [place] [address] Dr. Miguel EcholsSPEC GRAVITY1.181Xdmvgi1.005-<=1.025The [facility] HospitalComment on above:Performed By: #### PSASCLC #### [facility] [address] [place] [address] Dr. Miguel Duenas PROTEINNegativeNormalNEGATIVE/ TRACEThe [facility] Comment on above:Performed By: #### PSASCLC #### [facility] [address] [place] [address] Dr. Miguel Hernandez Qn (U)0.2 {Kameron'U}/dLNormal0.2 - 1.0The [facility] HospitalComment on above:Performed By: #### PSASCLC #### [facility] [address] [place] [address] Dr. Miguel EcholsWBC0-2AbnormalNONE SEENThe [facility] HospitalComment on above: Performed By: #### PSASCLC #### [facility] [address] [place] [address] Dr. Miguel EcholsINSULINon 66-33-1823Sehynmu01.6 uIU/mLCritically high2.6-24.9The [facility] HospitalComment on above:Performed By: #### CMREP #### [facility] [address] [place] [address] Dr. Miguel Olivas SCREENING LABCORPon 80-95-3503Jqmshlts specific Ag [Mass/Vol] 0.8 ng/mLNormal0.0-4.0The [facility] HospitalComment on above:Result Comment: [employer] ECLIA methodology. . According to the [place] [employer], Serum PSA should decrease and [...] of the presence or absence of malignant disease.Performed By: #### PSASCLC #### [facility] [address] [place] [address] Dr. Miguel Livingston FABIAN 3-6on 38-86-2467NK [Catalytic activity/Vol]141 U/L Qapoti03-817Mgv [facility] HospitalComment on above:Performed By: #### CMREP #### [facility] [address] [place] [address] Dr. Miguel Diop.MB [Mass/Vol]1.31 ng/mLNormal<=2.37The [facility] Comment on above:Performed By: #### CMREP #### [facility] [address] [place] [address] Dr. Miguel NolanTROP14.0 pg/mLNormal4.0-42.2The [facility] on above:Result Comment: CUT-OFF POINTS HAVE BEEN ESTABLISHED BASED ON THE FOURTH UNIVERSAL DEFINITIONS OF MYOCARDIAL INFARCTION. THE UPPER REFERENCE LIMIT (URL) OF TROPONIN, DEFINED THE 99TH PERCENTILE OF cTnI DISTRIBUTION IN A REFERENCE POPULATION, HAS BEEN CONFIRMED THE DECISION THRESHOLD FOR DC DIAGNOSIS.Performed By: #### CMREP #### [facility] [address] [place] [address] Dr. Miguel Diop [Catalytic activity/Vol]145 U/FZhefwg07-912Ubg [facility] HospitalComment on above:Performed By: #### CMREP #### [facility] [address] [place] [address] Dr. Miguel Diop.MB [Mass/Vol]1.46 ng/mLNormal<=2.37The [facility] Comment on above:Performed By: #### CMREP #### [facility] [address] [place] [address] Dr. Miguel NolanTROP14.2 pg/mLNormal4.0-42.2The [facility] HospitalComsinai-grace hospital on above:Result Comment: CUT-OFF POINTS HAVE BEEN ESTABLISHED BASED ON THE FOURTH UNIVERSAL DEFINITIONS OF MYOCARDIAL INFARCTION. THE UPPER REFERENCE LIMIT (URL) OF TROPONIN, DEFINED THE 99TH PERCENTILE OF cTnI DISTRIBUTION IN A REFERENCE POPULATION, HAS BEEN CONFIRMED THE DECISION THRESHOLD FOR DC DIAGNOSIS.Performed By: #### CMREP #### [facility] [address] [place] [address] Dr. Miguel Ac AUTO DIFFon 81-73-8132PPVI #0.1 103/ulNormal0.0-0.1Samaritan HospitalComment on above:Performed By: #### CBC #### [facility] [address] [place] [address] Dr. Miguel EcholsBasophils/100 WBC (Bld)1.2 %Normal0.2-2.0[facility] Comment on above:Performed By: #### CBC #### [facility] [address] [place] [address] Dr. Miguel Singh #0.3 103/ulNormal0.0-0.7The [facility] HospitalComment on above: Performed By: #### CBC #### [facility] [address] [place] [address] Dr. Miguel Kaiserosinophils/100 WBC (Bld)3.7 %Normal0.9-7.0The [facility] Comment on above:Performed By: #### CBC #### [facility] [address] [place] [address] Dr. Miguel Kaiserrythrocyte distribution width (RBC) [Ratio]12.5 %Wnjdzh86.0-15.0 The [facility] HospitalComment on above:Performed By: #### CBC #### [facility] [address] [place] [address] Dr. Miguel EcholsHematocrit (Bld) [Volume fraction]49.3 %Wqwrqg38.0-54.0The [facility] HospitalComment on above:Performed By: #### CBC #### [facility] [address] [place] [address] Dr. Miguel EcholsHemoglobin (Bld) [Mass/Vol]16.5 g/vFFxlrtn08.0-18.0The [facility] HospitalComment on above:Performed By: #### CBC #### [facility] [address] [place] [address] Dr. Miguel Foster #0.03 10e3/ulNormal0.00-0.03The [facility] HospitalComment on above:Performed By: #### CBC #### [facility] [address] [place] [address] Dr. Miguel Foster %0.4 %Normal0.0-0.5The [facility] HospitalComment on above: Performed By: #### CBC #### [facility] [address] [place] [address] Dr. Miguel Shah #1.8 103/ulNormal1.2-3.8The [facility] HospitalComment on above:Performed By: #### CBC #### [facility] [address] [place] [address] Dr. Miguel Olivasmphocytes/100 WBC (Bld)20.9 %Rzkvot66.5-60.0The [facility] HospitalComment on above:Performed By: #### CBC #### [facility] [address] [place] [address] Dr. Miguel GalindoUAL DIFF REQNONormalThe [facility] HospitalComment on above: Performed By: #### CBC #### [facility] [address] [place] [address] Dr. Miguel Whitmore (RBC) [Entitic mass]29.9 bjKvctve42.9-34.0The [facility] HospitalComment on above:Performed By: #### CBC #### [facility] [address] [place] [address] Dr. Miguel Whitmore (RBC) [Mass/Vol]33.5 g/mDPywxmq46.9-35.2The [facility] HospitalComment on above:Performed By: #### CBC #### [facility] [address] [place] [address] Dr. Miguel Whitmore (RBC) [Entitic vol]89.5 pYGsggfv14.0-94.0The [facility] HospitalComment on above:Performed By: #### CBC #### [facility] [address] [place] [address] Dr. Miguel Gomez #0.6 103/ulNormal0.3-0.8The [facility] HospitalComment on above:Performed By: #### CBC #### [facility] [address] [place] [address] Dr. Miguel Killianocytes/100 WBC (Bld)7.5 %Normal1.7-12.0The [facility] Comment on above:Performed By: #### CBC #### [facility] [address] [place] [address] Dr. Miguel Olson #5.6 103/ulNormal1.4-6.5The [facility] HospitalComment on above:Performed By: #### CBC #### [facility] [address] [address] [address] Miguel EcholsNeutrophils/100 WBC (Bld)66.3 %Icbuxf09.0-75.0The [facility] Centerment on above:Performed By: #### CBC #### [facility] [address] [address] [address] Miguel EcholsPlatelet mean volume (Bld) [Entitic vol]10.2 fLNormal9.5-13.5The [facility] HospitalComment on above:Performed By: #### CBC #### [facility] [address] [place] [address] Dr. Miguel EcholsPLT269 103/rqDdmher744-750Pxw [facility] HospitalComsinai-gr[facility] hospital on above: Performed By: #### CBC #### [facility] [address] [place] [address] Dr. Miguel EcholsRBC5.51 106/ulNormal4.70-6.10The [facility] HospitalComs[facility] hospital on above:Performed By: #### CBC #### [facility] [address] [place] [address] Dr. Miguel EcholsWBC8.5 103/ulNormal4.0-11.0The [facility] Centerment on above: Performed By: #### CBC #### [facility] [address] [place] [address] Dr. Miguel EcholsCT ABD/PELVIS WO CONon 78-33-5968ES ABD/PELVIS WO CONEXAMINATION: CT ABD/PELVIS WO CON, 05/14/2021 2:07 AM [...] authenticated by: MARY ALICE RUVALCABA Date: 2021-05-14 03:13[facility]on 44-84-0202EWVL-CoV-2 (COVID-19) RNA COURTNEY+probe Ql (Unsp spec)Not detectedNormalNOT DETECTEDSamaritan Hospital Comment on above:Result Comment: This test is not yet approved or cleared by the [place] FDA. When there are no FDA-approved or cleared tests available, and other criteria are met, FDA can make tests available under an emergency access mechanism called an Emergency Use Authorization (EUA). The EUA for this test is supported by the [place] of Health and Human Service's (HHS's) declaration that circumstances exist to justify the emergency use of in vitro diagnostics for the detection and/or diagnosis of the virus that causes COVID- 19. This EUA will remain in effect (meaning [...] of clinical signs and symptoms consistent with SARS-CoV-2.Performed By: #### CVDTBH #### [facility] [address] [place] [address] Dr. Miguel Burgos-DIMERon 47-22-7119X-DIMER0.28 mg/L FEUNormal0.19-0.50The [facility] HospitalComment on above:Performed By: #### CMREP #### [facility] [address] [place] [address] Dr. Miguel Burgos-DIMER COMMENTSSEE BELOWNoCleveland Clinic Lutheran HospitalComment on above:Result Comment: Increases in D-Dimer concentration observed with thromboembolic events [...] stress, and generalized hospitalization. Performed By: #### CMREP #### [facility] [address] [place] [address] Dr. Miguel Puentes URINE PROFILEon 24-54-5140Bgfbkqsms Ql (U)SMALLAbnormal NEGATIVESamaritan HospitalComment on above:Performed By: #### ERUR, UMICRO #### [facility] [address] [place] [address] Dr. Miguel EcholsClarity (U)SL CLOUDYAbnormalCLEARThe [facility] HospitalComment on above:Performed By: #### ERUR, UMICRO #### [facility] [address] [place] [address] Dr. Miguel EcholsColor (U)YELLOWNormalYELLOWSamaritan HospitalComment on above: Performed By: #### ERUR, UMICRO #### [facility] [address] [place] [address] Dr. Miguel Perez micrscopic examination will be performed if indicated. NormalThe [facility] HospitalComsinai-[facility] hospital on above:Performed By: #### ERUR, UMICRO #### [facility] [address] [place] [address] Dr. Miguel EcholsGlucose Ql (U)NegativeNormalNEGATIVESamaritan HospitalComsinai-grace hospital on above:Performed By: #### ERUR, UMICRO #### [facility] [address] [place] [address] Dr. Miguel EcholsHemoglobin Ql (U)TRACE-INTACTAbnormalNEGATIVESamaritan HospitalComsinai-grace hospital on above:Performed By: #### ERUR, UMICRO #### [facility] [address] [place] [address] Dr. Miguel EcholsKetones Ql (U)NegativeNormalNEGATIVESamaritan HospitalComsinai-grace hospital on above:Performed By: #### ERUR, UMICRO #### [facility] [address] [address] [address] Miguel EcholsLEUKOCYTESNegativeNormalNEGATIVEThe [facility] HospitalComment on above:Performed By: #### MANSI REYNOSORO #### [facility] [address] [address] [address] Miguel EcholsNitrite Ql (U)NegativeNormalNEGATIVEThe [facility] HospitalComment on above:Performed By: #### MANSI REYNOSORO #### [facility] [address] [address] [address] Miguel EcholspH (U)6.5 [pH]Normal5-9The [facility] HospitalComment on above: Performed By: #### MANSI REYNOSORO #### [facility] [address] [address] [address] Miguel EcholsSPEC GRAVITY1.858Uiiewg0.005-<=1.025The [facility] HospitalComment on above:Performed By: #### MANSI REYNOSORO #### [facility] [address] [address] [address] Miguel EcholsUA PROTEINNegativeNormalNEGATIVE/ TRACEThe [facility] Comment on above:Performed By: #### MANSI REYNOSORO #### [facility] [address] [address] [address] Miguel EcholsUR MICRO INDINDICATEDNoCleveland Clinic Lutheran HospitalComment on above: Performed By: #### JAVIER REYNOSO #### [facility] [address] [address] [address] Miguel Marinbilinogen Qn (U)0.2 {Kameron'U}/dLNormal0.2 - 1.0The [facility] HospitalComment on above:Performed By: #### MANSI REYNOSORO #### [facility] [address] [address] [address] Miguel EcholsGLYCOHEMOGLOBIN A1Con [id number] RECOMMENDATIONADA THERAPEUTIC TARGET 6.0 - 7.0 ACTION SUGGESTED > 7.0NoCleveland Clinic Lutheran HospitalComment on above:Performed By: #### A1C #### [facility] [address] [address] [address] Miguel EcholsGlucose [Mass/Vol]117 mg/dLDetwiler Memorial HospitalComsinai-grace hospital on above:Performed By: #### A1C #### [facility] [address] [address] [address] Miguel EcholsHbA1c (Bld) [Mass fraction]5.7 %Normal<=6.0[facility] Comment on above:Performed By: #### A1C #### [facility] [address] [address] [address] Miguel EcholsLIPID PROFILEon [id number]-HDL RATIO NORMSOhioHealth Grant Medical CenterComsinai-grace hospital on above:Result Comment: 3.3 - 4.4 LOW RISK 4.4 - 7.1 AVERAGE RISK 7.1 - 11.0 MODERATE RISK >11.0 HIGH RISKPerformed By: #### CMREP #### [facility] [address] [address] [address] Miguel EcholsCholesterol [Mass/Vol]186 mg/dLNormal<=200[facility] Comment on above:Performed By: #### CMREP #### [facility] [address] [address] [address] Miguel EcholsCholesterol in HDL [Mass/Vol]36 mg/dLDetwiler Memorial Hospital Comment on above:Performed By: #### CMREP #### [facility] [address] [address] [address] Miguel Purvisesterol in LDL [Mass/Vol]119.4 mg/dLDetwiler Memorial HospitalComsinai-grace hospital on above:Performed By: #### CMREP #### [facility] [address] [address] [address] Miguel Purvisesterrehan.total/Cholesterol in HDL [Mass ratio]5.2 {ratio} NormalSamaritan HospitalComment on above:Performed By: #### CMREP #### [facility] [address] [address] [address] Miguel Brambila NORMAL> or = 60 mg/dl - LOW CARDIOVASCULAR RISK <40 mg/dl - HIGH CARDIOVASCULAR RISKDetwiler Memorial HospitalComment on above:Performed By: #### CMREP #### [facility] [address] [place] [address] Dr. Miguel EcholsLDL CALC NORMALSEE BELOWDetwiler Memorial HospitalComment on above:Result Comment: <100 mg/dl OPTIMAL 100 - 129 mg/dl NEAR OR ABOVE OPTIMAL 130 - 159 mg/dl BORDERLINE HIGH 160 - 189 mg/dl HIGH >190 mg/dl VERY HIGH Performed By: #### CMREP #### [facility] [address] [place] [address] Dr. Miguel EcholsTriglyceride [Mass/Vol]153 mg/dLCritically high<=150The [facility] HospitalComment on above:Performed By: #### CMREP #### [facility] [address] [place] [address] Dr. Miguel EdgeLDL CALC30.6 mg/dLNoCleveland Clinic Lutheran HospitalComment on above: Performed By: #### CMREP #### [facility] [address] [place] [address] Dr. Miguel EcholsPROChristopher 14(COMP METB)on 61-13-7307Kzedkmb [Mass/Vol]3.6 g/dLNormal 3.5-5.0The [facility] HospitalComment on above:Performed By: #### CMREP #### [facility] [address] [place] [address] Dr. Miguel EcholsAlbumin/Globulin [Mass ratio]1.0 {ratio}NormalThe [facility] HospitalComment on above:Performed By: #### CMREP #### [facility] [address] [place] [address] Dr. Miguel Love [Catalytic activity/Vol]90 U/MHhmpzu28-010Vzx [facility] HospitalComment on above:Performed By: #### CMREP #### [facility] [address] [place] [address] Dr. Miguel Kline [Catalytic activity/Vol]31 U/SWyumht80-29WlzSamaritan HospitalComment on above:Performed By: #### CMREP #### [facility] [address] [address] [address] Miguel Maloney gap [Moles/Vol]14.1 mmol/LNormalSamaritan Hospital Comment on above:Performed By: #### CMREP #### [facility] [address] [address] [address] Miguel EcholsAST [Catalytic activity/Vol]18 U/VQutmjz48-01Ywu [facility] HospitalComment on above:Performed By: #### CMREP #### [facility] [address] [address] [address] Miguel EcholsBilirubin [Mass/Vol]0.5 mg/dLNormal0.2-1.3TOhioHealth Hardin Memorial Hospital Comment on above:Performed By: #### CMREP #### [facility] [address] [place] [address] Dr. Miguel EcholsCalcium [Mass/Vol]9.0 mg/dLNormal8.4-10.2[facility] Comment on above:Performed By: #### CMREP #### [facility] [address] [place] [address] Dr. Miguel EcholsChloride [Moles/Vol]102 mmol/ANicmnu54-296JqaSamaritan Hospital Comment on above:Performed By: #### CMREP #### [facility] [address] [place] [address] Dr. Miguel EcholsCO2 [Moles/Vol]24.9 mmol/DFjdokh47.0-30.0[facility] Comment on above:Performed By: #### CMREP #### [facility] [address] [place] [address] Dr. Miguel EcholsCreatinine [Mass/Vol]0.87 mg/dLNormal0.66-1.25The [facility] HospitalComment on above:Performed By: #### CMREP #### [facility] [address] [place] [address] Dr. Rivera ChangEGFR-AF CITIZEN OF [place]>60Normal>=60The [facility] HospitalComment on above:Performed By: #### CMREP #### [facility] [address] [address] [address] Miguel KaiserGFR-NON AF CITIZEN OF [place]>60Normal>=60The [facility] HospitalComment on above:Performed By: #### CMREP #### [facility] [address] [address] [address] Miguel EcholsGlobulin (S) [Mass/Vol]3.6 g/dLNormSelect Medical Specialty Hospital - Boardman, IncComment on above:Performed By: #### CMREP #### [facility] [address] [address] [address] Miguel EcholsGlucose [Mass/Vol]103 mg/rDFgpqhm43-048MmlSamaritan Hospital Comment on above:Performed By: #### CMREP #### [facility] [address] [address] [address] Miguel EcholsPotassium [Moles/Vol]4.0 mmol/LNormal3.4-5.0[facility] Comment on above:Performed By: #### CMREP #### [facility] [address] [address] [address] Miguel EcholsProtein [Mass/Vol]7.2 g/dLNormal6.1-8.2[facility] Comment on above:Performed By: #### CMREP #### [facility] [address] [address] [address] Miguel EcholsSodium [Moles/Vol]137 mmol/OKvjqkm755-804EtySamaritan Hospital Comment on above:Performed By: #### CMREP #### [facility] [address] [address] [address] Miguel EcholsUrea nitrogen [Mass/Vol]15.0 mg/dLNormal9.0-20.0The [facility] HospitalComment on above:Performed By: #### CMREP #### [facility] [address] [address] [address] Miguel EcholsUrea nitrogen/Creatinine [Mass ratio]17.2 mg/mgNoCleveland Clinic Lutheran HospitalComment on above:Performed By: #### CMREP #### [facility] [address] [address] [address] Miguel EcholsURIC ACID SERUMon 17-79-5629Plzcl [Mass/Vol]5.0 mg/dLNormal 3.5-8.5The [facility] HospitalComment on above:Performed By: #### CMREP #### [facility] [address] [address] [address] Miguel Xie MICROSCOPIC ONLYon [id number] CRYSTALSFEWDetwiler Memorial HospitalComment on above:Performed By: #### EDGARDO UMICRO #### [facility] [address] [place] [address] Dr. Miguel Thayer SEENGeneral Leonard Wood Army Community HospitalE SEENSamaritan HospitalComsinai-grace hospital on above:Performed By: #### EDGARDO UMICRO #### [facility] [address] [place] [address] Dr. Miguel Blanca identified Cx Nom (U)NOT INDICATEDDetwiler Memorial HospitalComsinai-grace hospital on above:Performed By: #### EDGARDO UMICRO #### [facility] [address] [place] [address] Dr. Miguel Moreno SEENNormBanner MD Anderson Cancer CenterUmang SEENSamaritan HospitalComsinai-grace hospital on above:Performed By: #### EDGARDO UMICRO #### [facility] [address] [place] [address] Dr. Miguel Galvez LM Nom (Urine sed)SEENAbnormalNONE SEENSamaritan HospitalComsinai-grace hospital on above:Performed By: #### EDGARDO UMICRO #### [facility] [address] [place] [address] Dr. Miguel Lyonthelial cells LM Ql (Urine sed)RARENormalNONE SEEN /RARESamaritan HospitalComsinai-grace hospital on above:Performed By: #### EDGARDO UMICRO #### [facility] [address] [place] [address] Dr. Miguel Nicole SEENNormalNONE SEENThe [facility] HospitalComment on above:Performed By: #### ERUSLICK BennettICRO #### [facility] [address] [place] [address] Dr. Miguel EcholsAxmgnDNC8-7Htjpvqaw3-1Gdc [facility] HospitalComment on above:Performed By: #### ERUR UMICRO #### [facility] [address] [place] [address] Dr. Miguel EcholsWBC0-2AbnormalNONE SEENSamaritan HospitalComment on above: Performed By: #### ERUR UMICRO #### [facility] [address] [place] [address] Dr. Miguel EcholsXR CHEST 1 Von [id number] CHEST 1 VCLINICAL HISTORY: Chest pain. FINDINGS: Portable AP view of the chest obtained. Cardiomediastinal silhouette is normal. Lungs are clear, no evidence of infiltrate, suspicious nodule, or mass. No evidence of significant pleural fluid on this portable projection. No acute bony abnormality. IMPRESSION: No acute abnormality. Electronically authenticated by: KAMILLA GUTIÉRREZ Date: 2021-05-13 22:18Detwiler Memorial HospitalCARDIAC FABIAN ADMITon [id number] [Catalytic activity/Vol]158 U/IGusbku92-945Bff [facility] on above:Performed By: #### CMREP #### [facility] [address] [place] [address] Dr. Miguel Diop.MB [Mass/Vol]1.56 ng/mLNormal<=2.37The [facility] Comment on above:Performed By: #### CMREP #### [facility] [address] [place] [address] Dr. Miguel EcholsHSTROP15.4 pg/mLNormal4.0-42.2The [facility] HospitalComsinai-grace hospital on above:Result Comment: CUT-OFF POINTS HAVE BEEN ESTABLISHED BASED ON THE FOURTH UNIVERSAL DEFINITIONS OF MYOCARDIAL INFARCTION. THE UPPER REFERENCE LIMIT (URL) OF TROPONIN, DEFINED THE 99TH PERCENTILE OF cTnI DISTRIBUTION IN A REFERENCE POPULATION, HAS BEEN CONFIRMED THE DECISION THRESHOLD FOR DC DIAGNOSIS.Performed By: #### CMREP #### [facility] [address] [place] [address] Dr. Miguel CordovaO58.0 ng/mLNormal<=121.0The [facility] Medical Centerment on above: Performed By: #### CMREP #### [facility] [address] [place] [address] Dr. Miguel Ac W MANUAL DIFFon [id number] LYMPH #0.21 103/ulNormal The [facility] HospitalComment on above:Performed By: #### CMREP #### [facility] [address] [place] [address] Dr. Miguel EcholsATYPICAL LYMPH %2 %NormalSamaritan HospitalComment on above: Performed By: #### CMREP #### [facility] [address] [place] [address] Dr. Miguel Villalobos #0.2 103/ulNormal0.0-0.3The [facility] HospitalComment on above:Performed By: #### CMREP #### [facility] [address] [place] [address] Dr. Miguel Villalobos %2 %Normal0-5The [facility] HospitalComment on above:Performed By: #### CMREP #### [facility] [address] [place] [address] Dr. Miguel Velazquez #0.10 103/ulNormal0.00-0.10The [facility] HospitalComment on above:Performed By: #### CMREP #### [facility] [address] [place] [address] Dr. Miguel Velazquez %1.0 %Normal0.2-2.0The [facility] HospitalComment on above: Performed By: #### CMREP #### [facility] [address] [place] [address] Dr. Miguel Wells #NormalSamaritan HospitalComsinai-grace hospital on above:Performed By: #### CMREP #### [facility] [address] [place] [address] Dr. Miguel Wells %NormalSamaritan HospitalComment on above:Performed By: #### CMREP #### [facility] [address] [place] [address] Dr. Miguel EcholsCORRECTED WBCNormal4.0-11.0The [facility] HospitalComsinai-grace hospital on above: Performed By: #### CMREP #### [facility] [address] [place] [address] Dr. Miguel Jaffe #0.62 103/ulNormal0.00-0.70The [facility] HospitalComment on above:Performed By: #### CMREP #### [facility] [address] [place] [address] Dr. Miguel Jaffe%6.0 %Normal0.9-7.0The [facility] HospitalComsinai-grace hospital on above: Performed By: #### CMREP #### [facility] [address] [place] [address] Dr. Miguel EcholsHCT47.0 %Wtnvga88.0-54.0The [facility] HospitalComment on above: Performed By: #### CMREP #### [facility] [address] [place] [address] Dr. Miguel EcholsHGB15.5 g/teArarqx00.0-18.0The [facility] HospitalComsinai-gr[facility] hospital on above: Performed By: #### CMREP #### [facility] [address] [place] [address] Dr. Miguel Lewis #2.47 103/ulNormal1.20-3.80The [facility] on above:Performed By: #### CMREP #### [facility] [address] [place] [address] Dr. Miguel Lewis%24.0 %Kycywh57.5-60.0The [facility] HospitalComsinai-grace hospital on above:Performed By: #### CMREP #### [facility] [address] [place] [address] Dr. Miguel EcholsMCH30.2 sxRjnetx59.9-34.0The [facility] HospitalComment on above: Performed By: #### CMREP #### [facility] [address] [place] [address] Dr. Miguel WhitmoreHC33.0 g/ezNbpxlv32.9-35.2The [facility] HospitalComment on above:Performed By: #### CMREP #### [facility] [address] [place] [address] Dr. Miguel WhitmoreV91.6 xVDhiouy86.0-94.0The [facility] HospitalComment on above: Performed By: #### CMREP #### [facility] [address] [place] [address] Dr. Miguel Torres #NormalThe [facility] HospitalComment on above: Performed By: #### CMREP #### [facility] [address] [place] [address] Dr. Mgiuel Torres %NormalThe [facility] HospitalComment on above: Performed By: #### CMREP #### [facility] [address] [place] [address] Dr. Miguel Huggins#0.21 103/ulCritically low0.30-0.80The [facility] on above:Performed By: #### CMREP #### [facility] [address] [place] [address] Dr. Miguel Huggins%2.0 %Normal1.7-12.0The [facility] HospitalComment on above: Performed By: #### CMREP #### [facility] [address] [place] [address] Dr. Miguel BunnV10.1 fLNormal9.5-13.5The [facility] HospitalComment on above: Performed By: #### CMREP #### [facility] [address] [place] [address] Dr. Miguel Aguirre #NormalThe [facility] HospitalComment on above:Performed By: #### CMREP #### [facility] [address] [place] [address] Dr. Miguel Aguirre %NormalThe [facility] HospitalComment on above:Performed By: #### CMREP #### [facility] [address] [place] [address] Dr. Miguel EcholsNRBCNormalThe [facility] HospitalComment on above:Performed By: #### CMREP #### [facility] [address] [place] [address] Dr. Miguel EcholsPLT249 103/awDdxjlp571-815Sqe [facility] HospitalComsinai-[facility] hospital on above: Performed By: #### CMREP #### [facility] [address] [place] [address] Dr. Miguel EcholsRBC5.13 106/ulNormal4.70-6.10The [facility] HospitalComment on above:Performed By: #### CMREP #### [facility] [address] [place] [address] Dr. Miguel EcholsRDW12.4 %Martnq91.0-15.0The [facility] HospitalComsinai-gr[facility] hospital on above: Performed By: #### CMREP #### [facility] [address] [place] [address] Dr. Miguel Middleton #6.49 103/ulNormal1.40-6.50The [facility] HospitalComsinai-gr[facility] hospital on above:Performed By: #### CMREP #### [facility] [address] [place] [address] Dr. Miguel Middleton %63.0 %Dnwbvp33.0-75.0The [facility] on above: Performed By: #### CMREP #### [facility] [address] [place] [address] Dr. Miguel TreviñoBC10.3 103/ulNormal4.0-11.0The [facility] HospitalComsinai-[facility] hospital on above:Performed By: #### CMREP #### [facility] [address] [place] [address] Dr. Miguel Chambers 33-76-3360Oxmnfx [Catalytic activity/Vol]182.0 U/LNormal 23.0-300.0The [facility] HospitalComment on above:Performed By: #### CMREP #### [facility] [address] [place] [address] Dr. Miguel Kohli 14(COMP METB)on 16-22-8608Nmddlkh [Mass/Vol]3.3 g/dL Critically low3.5-5.0The [facility] HospitalComment on above:Performed By: #### CMREP #### [facility] [address] [address] [address] Miguel EcholsAlbumin/Globulin [Mass ratio]0.9 {ratio}NormalThe [facility] HospitalComment on above:Performed By: #### CMREP #### [facility] [address] [place] [address] Dr. Miguel MeyerP [Catalytic activity/Vol]94 U/HRfwbsc26-463Avq [facility] HospitalComment on above:Performed By: #### CMREP #### [facility] [address] [place] [address] Dr. Miguel MeyerT [Catalytic activity/Vol]30 U/DOrmudp58-23Rua [facility] HospitalComment on above:Performed By: #### CMREP #### [facility] [address] [place] [address] Dr. Miguel Maloney gap [Moles/Vol]14.1 mmol/LNormalSamaritan Hospital Comment on above:Performed By: #### CMREP #### [facility] [address] [place] [address] Dr. Miguel EcholsAST [Catalytic activity/Vol]18 U/CPfiovw88-58Ojz [facility] HospitalComment on above:Performed By: #### CMREP #### [facility] [address] [place] [address] Dr. Miguel EcholsBilirubin [Mass/Vol]0.2 mg/dLNormal0.2-1.3The [facility] Comment on above:Performed By: #### CMREP #### [facility] [address] [place] [address] Dr. Miguel EcholsCalcium [Mass/Vol]8.6 mg/dLNormal8.4-10.2The [facility] Comment on above:Performed By: #### CMREP #### [facility] [address] [address] [address] Miguel EcholsChloride [Moles/Vol]103 mmol/EFadktp02-351Avl [facility] Comment on above:Performed By: #### CMREP #### [facility] [address] [place] [address] Dr. Miguel EcholsCO2 [Moles/Vol]26.8 mmol/STtezau37.0-30.0The [facility] Comment on above:Performed By: #### CMREP #### [facility] [address] [place] [address] Dr. Miguel EcholsCreatinine [Mass/Vol]1.10 mg/dLNormal0.66-1.25The [facility] HospitalComment on above:Performed By: #### CMREP #### [facility] [address] [place] [address] Dr. Rivera ChangEGFR-AF IARVAVXU20 mL/min/1.89w1Xrckhu>=60The [facility] Comment on above:Performed By: #### CMREP #### [facility] [address] [place] [address] Dr. Miguel KaiserGFR-NON AF ZKGBTLGJ14 mL/min/1.58j3Uzeiuk>=60The [facility] HospitalComment on above:Performed By: #### CMREP #### [facility] [address] [place] [address] Dr. Miguel EcholsGlobulin (S) [Mass/Vol]3.5 g/dLNormalThe [facility] HospitalComment on above:Performed By: #### CMREP #### [facility] [address] [place] [address] Dr. Miguel EcholsGlucose [Mass/Vol]138 mg/dLCritically gcwf97-808Jle [facility] HospitalComment on above:Performed By: #### CMREP #### [facility] [address] [place] [address] Dr. Miguel EcholsPotassium [Moles/Vol]3.9 mmol/LNormal3.4-5.0The [facility] Comment on above:Performed By: #### CMREP #### [facility] [address] [address] [address] Miguel EcholsProtein [Mass/Vol]6.8 g/dLNormal6.1-8.2The [facility] Comment on above:Performed By: #### CMREP #### [facility] [address] [address] [address] Miguel EcholsSodium [Moles/Vol]140 mmol/GFgtish676-994Azm [facility] Comment on above:Performed By: #### CMREP #### [facility] [address] [place] [address] Dr. Miguel EcholsUrea nitrogen [Mass/Vol]13.0 mg/dLNormal9.0-20.0[facility] HospitalComment on above:Performed By: #### CMREP #### [facility] [address] [place] [address] Dr. Miguel Helton nitrogen/Creatinine [Mass ratio]11.8 mg/mgNormalThe [facility] HospitalComment on above:Performed By: #### CMREP #### [facility] [address] [place] [address] Dr. Miguel Stallworth 30-97-1671OSF Coag (PPP) [Relative time]0.95 {INR} NormalSamaritan HospitalComment on above:Performed By: #### PSASCLC #### [facility] [address] [place] [address] Dr. Miguel Stanton GUIDELINESSEE BELOWDetwiler Memorial HospitalComment on above:Result Comment: DESIRED INR: 2.0 - 3.0 CONDITIONS NOT LISTED BELOW 2.5 - 3.5 FOR PROSTHETIC HEART VALVE REPLACEMENT 2.5 - 3.5 RECURRENT THROMBOSIS Performed By: #### PSASCLC #### [facility] [address] [place] [address] Dr. Miguel Almonte Coag (PPP) [Time]10.3 sNormal9.0-11.6The [facility] Comment on above:Performed By: #### PSASCLC #### [facility] [address] [place] [address] Dr. Miguel AlmonteTon [id number] Coag (Bld) [Time]26.3 iQooamf20.3-36.2The [facility] HospitalComment on above:Performed By: #### PSASCLC #### [facility] [address] [address] [address] Miguel Echols Vital Signs Date TimeVital SignValuePerforming UjhbotkunFfxtuwyn39-78-1936 09:30-0400Body zbgotp646.36 kgCaden Cervantes Other [employer] Other 08-07-2023 09:30-0400Diastolic blood nmvxseze53 mm[Hg] Caden Cervantes Other [employer] Other 08-07-2023 09:30-0400Systolic blood ottogqax493 mm[Hg] Caden Cervantes Other [employer] Other 01-17-2022 10:22-0500Diastolic blood afnlpzqh23 mm[Hg] Silvia Huerta [employer] Work Phone: [phone]-Wvzen [employer] 250 DO Work Phone: [phone] 10:22-0500Systolic blood mm[Hg] Silvia Huerta Hoy Work Phone: [phone]-Jrkua [place] [employer] 250 DO Work Phone: [phone] 10:21-0500Body goopsn490.42 cmDouglas M Hoy Work Phone: [phone]-Fludq [employer] 250 DO Work Phone: [phone] 10:21-0500Body mass index (BMI) [Ratio] 40.11 kg/n1Irpownc M Hoy Work Phone: [phone]-Kzdft [employer] 250 DO Work Phone: [phone] 10:21-0500Body surface area Derived from formula2.57 c2Zlmbndj M Hoy Work Phone: [phone]-Lhbsq [facility] 250 DO Work Phone: [phone] 10:0500Body .89 kgDoalexia Huerta Hoy Work Phone: [phone]-Pbjyw [place] [facility] 250 DO Work Phone: [phone] 10:0500Diastolic blood qtkvbujm40 mm[Hg] Silvia M Hoy Work Phone: [phone]-Efgvo [facility] 250 DO Work Phone: [phone] 10:050Heart rate72 /minDouglas Bradley Hoy Work Phone: [phone]-Diiuu [facility] 250 DO Work Phone: [phone] 10:0500Systolic blood kwrclsja984 mm[Hg] Silvia Huerta Hoy Work Phone: [phone]-Hoyrj [facility] 250 DO Work Phone: Encounters Encounter DateEncounter TypeCare ProviderFacilityStart: 12-23-2022 End: 18-96-3434oazjlefnpnPhfy Scovanner Other [place] [employer] Other Start: 85-34-0545Sqfsor outpatient new 30 minutesRyan ScovannerFPG GastroenterologyStart: 07-23-2021 End: 29-34-2347xrmfejkbthDQ QUANG SILVAFacility:K8Kizcc: 07-06-2021 End: 31-66-6004eierwphfviAC RICHARD M WIECEKFacility:U8Tvenw: 06-26-2021 End: 34-84-2847sexkpeputxZQ SILVIA ROBLEDOYFacility:E0Skunk: 81-77-2676Lvvcginru for preprocedural laboratory examinationDR QUANG Huerta [facility] Start: 06-19-2021 End: 74-61-1686zxhgrjalwpFV QUANG Huerta SHIRAFacility:I6Lzpuj: 06-19-2021 End: 46-85-4748Mdrcitkeg for preprocedural laboratory examinationDR QUANG SILVAFacility:O8Ageoe: 06-04-2021 End: 12-08-0828aweuojzjpvFYPRDF RODRIGUEZFacility:Z2Agjln: 08-36-6555Tp Renewal Silvia Huerta Hoy Work Phone: [phone][facility] 250 DO Work Phone: Start: 98-90-6729Kkassm outpatient new 45 minutes Silvia M Hoy Work Phone: [phone]-[facility]rbxaPaynesville [facility] 250 DO Work Phone: Start: 82-35-7406Qmtcbtlxm for general adult medical examination without abnormal findingsINGRID [place] [facility] Hospitaltart: 05-14-2021 End: 41-63-6621cnfidwcszlGM SILVIA HOYFacility:B8Zrbeb: 05-13-2021 End: 26-83-9401agvikynawyYR SILVIA HOYFacility:E9Pcgul: 05-13-2021 End: 11-13-6498Btbowxqfh for general adult medical examination without abnormal findingsDR SILVIA HOYFacility:H1 Procedures DateProcedureProcedure DetailPerforming ClinicianOperation on noseDouglas M Hoy Work Phone: [phone] M Hoy Work Phone: NEGATED: Highlighted row has not occurred!Total colonoscopyDouglas M Hoy Work Phone: Plan of Treatment DateCare ActivityDetailAuthorStart: 73-79-4362KDE, Provider: Edouard Carr, Status: Pen, Time: 8:30 AMFUV, Provider: Edouard Carr, Status: Pen, Time: 8:30 AMMultiCare [facility] 250 DO Work Phone: Start: 10-77-3202VTKCBY GERDA, Provider: PANKAJ [facility] NUCLEAR , Status: Pen, Time: 2:00 PMSTRESS GERDA, Provider: PANKAJ [facility] NUCLEAR ,[id number], Status: Pen, Time: 2:00 [facility]- Pankaj 250 DO Work Phone: Payers DatePayer CategoryPayerPolicy [id number] 2.16.840.1.517017.3.57[id number] 2.16.840.1.023248.3.57[id number] 2..840.1.633069.3.57[id number] 2.16.840.1.528303.3.57[id number] 2.16.840.1.480363.3.57[id number] 2..840.1.787284.3.579.2.13363-64-5935Sdycelg Health [id number] 25-79-7612Jxzn-[id number] View Regional Medical [id number] 2.840.1.675015.19UnknownAETNA Social History DateTypeDetailFacilityCaffeine useCaffeine use-[facility]-Pankaj 250 DO Work Phone: Comment on above:one pot daily.;1 pack per day.;Sex Assigned At BirthSex Assigned At BirthNofreeman orthopaedics & sports medicine Dapt Other Evaluation note 12-23-2022 Note Date & AppxDlxkOhkkqoyt98-27-2140 Evaluation note* Encounter Date Diagnosis Assessment Notes Treatment Notes Treatment Clinical Notes Dec, Abdominal pain (ICD-10 - R10.9) [...] 40mg daily Pt RTO in 2 months [employer] Other Clinical Note 07-06-2021 Note Date & MmnnFxbbXujuwvzi87-56-0589 NoteOPERATIVE NOTE PREOPERATIVE DIAGNOSIS: Abdominal pain. POSTOPERATIVE DIAGNOSIS: Gastritis, sigmoid diverticulosis. PROCEDURE PERFORMED: EGD with biopsy x1 from the antrum of the stomach for H. pylori testing, colonoscopy. ANESTHESIA: MAC. DISPOSITION: To the holding area in fair condition. PROCEDURE: Patient was brought into the endoscopy suite, placed in the left lateral decubitus position. He was sedated by the nurse stock handler floorperson. Bite block was placed in his mouth. [...] lesions. Patient tolerated procedure without any difficulty. [facility] Signed and Approved by: DR QUANG SILVA . 07/16/2021 15:26:00[facility] Clinical Note 07-06-2021 Note Date & SggqUqjfBmzsycxo78-97-5432 NoteOPERATIVE NOTE ADDENDUM: POSTOPERATIVE DIAGNOSIS: Colonic polyp. PROCEDURE: Colonoscopy with snare polypectomy. [facility] Signed and Approved by: DR QUANG SILVA . 08/13/2021 07:13:00[facility] History general Narrative - Reported Note Date & TypeNoteFacilityHistory general Narrative - Reported* Type Description Date Medical History high blood pressure Medical Historytype II diabetesSurgical Historynose resetSurgical History tonsillectomy [employer] Other Family History Unknown Family Member Name Dates Details Family history of malignant neoplasm: Mother(V16.9, Z80.9) Status:ActiveFamily history of hypertension: Mother, Father, Brother(V17.49, Z82.49) Status:ActiveFamily history of diabetes mellitus: Father(V18.0, Z83.3) Status:ActiveKidney stones, calcium oxalate: Brother Status:Active Unknown Family Member Name Dates Details Family history of malignant neoplasm: Mother(V16.9, Z80.9) Status:ActiveFamily history of hypertension: Mother, Father, Brother(V17.49, Z82.49) Status:ActiveFamily history of diabetes mellitus: Father(V18.0, Z83.3) Status:ActiveKidney stones, calcium oxalate: Brother Status:Active Unknown Family Member Name Dates Details Family history of malignant neoplasm: Mother(V16.9, Z80.9) Status:ActiveFamily history of hypertension: Mother, Father, Brother(V17.49, Z82.49) Status:ActiveFamily history of diabetes mellitus: Father(V18.0, Z83.3) Status:ActiveKidney stones, calcium oxalate: Brother Status:Active Summary Purpose Advance Directives No Advanced Directives Records FoundNo Advanced Directives Records Found Additional Source Comments (unrecognized sect ion and content) No Status Records FoundNo Status Records Found INFORMATION SOURCE (unrecogn ized section and content) DATE CREATED AUTHOR 06/04/2021 [employer] DATE CREATED AUTHOR AUTHOR'S ORGANIZ ATION 09/08/2021 [facility] REASON FOR VISIT (unrecogniz ed section and [...] BE BASED ON THE PRIMARY CLINICAL RECORDS. [facility]. provides no warranty or guarantee of the accuracy or completeness of information in this document.
--- NOTE | 2025-03-17 08:00 | NM_ITS ---
Patient Name: JOSH KEMP MR#: [id number] : 1970 Exam Date: 03/17/2025 Ordering Doctor: DR SILVIA WADDELL . RADIOLOGY REPORT PROCEDURE: NM BRIGETTE PERF SPECT REST STR COMPARISON: None. INDICATIONS: CHEST PAIN TECHNIQUE: Exam Description: Stress/Rest two day protocol gated SPECT Rest Imagin.7 mCi Tc-99m Cardiolite IV on 03/18/2025 Stress Imaging 25.2 mCi Tc-99m Cardiolite IV on 03/17/2025 Exercise Protocol: Abe Heart Rate (bpm): Rest: 80 Max: 153 PMHR: 92 Blood Pressure: Rest: 140/78 Max: 170/90 Exercise Time: Minutes: 5 Seconds: 02 Stage Reached: Stage: 2 Mets 7.0 Symptoms: Rest and peak stress ECG findings were pending, and the exercise portion of the study was pending per attending physician [facility]. For more details, please see separate cardiac stress test report. FINDINGS: QUALITY OF STUDY: Good PERFUSION DEFECT: LOCATION: Inferoapical SIZE: Large SEVERITY: Moderate TYPE: Reversible WALL MOTION: Hypokinesis of the inferior wall LV SIZE: 154 mL. TID / TCD: 1.0 LVEF: Calculated EF 53%. SUMMARY: Myocardial perfusion imaging study is abnormal CONCLUSION: 1. Myocardial perfusion is abnormal with soft tissue attenuation 2. There is a large, predominantly reversible, inferoapical perfusion defect consistent with ischemia 3. Global left ventricular systolic function is lower normal limits; ejection fraction 50 to 53% 4. No significant transient ischemic dilatation Dictated by: Cornell Spencer M.D. on 03/18/2025 at 10:56 Approved by: Cornell Spencer M.D. on 03/18/2025 at 11:00
--- NOTE | 2025-03-17 09:57 | PC.NURSE ---
Nursing Note Cardiac Stress Test Reviewed: Medication, allergies and patient history reviewed. Stress Test: [ x] Patient tolerated stress test well. [ ] Patient unable to tolerate walking on treadmill. Switched to Lexiscan stress test. [ x] No chest pain noted per patient [ ] Chest pain that resolved prior to leaving stress lab. [ ] No dyspnea noted. [ x] Dyspnea that resolved prior to leaving stress lab. [ x] Patient left stress lab asymptomatic and hemodynamically stable. [ ] Patient taken to the Emergency Room due to non-resolving symptoms following stress test. [ x] Patient achieved target heart rate. [ ] Patient unable to achieve target heart rate. [ ] Aminophylline administered as reversal agent to Lexiscan (Regadenoson). [ ] Nitro administered. Nursing Comments:Pt had Cardiolite test done. No CP noted. Dyspnea is normal per pt with activity.
== END 2025-03-17 07:53 | disposition home or self-care (01) ==
PROVIDERS: PCP Family Medicine; Visit Provider Family Medicine
DX: R07.9 Chest pain, unspecified (principal)
CPT/HCPCS: 78452; 93017; A9500

== ENCOUNTER 2025-05-10 10:40 | Outpatient (OUT) | payer OTHER, SELFPAY ==
--- OUTSIDE RECORDS SUMMARY | 2025-05-10 10:47 | XMS_ITS | Clinical Summary ---
Author Organization [facility] Address [address] [place] [address] Care Team Providers Care Computer Information Systems Professor Name Role Phone Unavailable Primary Care Provider Unavailabl e Medications MedicationSigDispense QuantityRefillsLast FilledStart DateEnd DateStatus etodolac (Lodine) 500 MG tablet Indications:ArthritisTAKE 1 TABLET BY MOUTH TWICE A DAY NEEDED 60 tablet 5Active omeprazole (PriLOSEC) [address] shanell Indications:Gastroesophageal reflux disease, unspecified whether esophagitis presentTAKE 1 CAPSULE BY MOUTH EVERY DAY 90 capsule 5Active Encounters DateTypeDepartmentCare PpfmUfetmzuykhp99/26/2025Refill [facility] [address] [place] [address] Myron Kay DO Gastroesophageal reflux disease, unspecified whether esophagitis present 02/27/2025Refill [facility] [address] [place] [address] Myron Kay DO Arthritisfrom Last 3 Months Social History Tobacco UseTypesPacks/DayYears UsedDateSmoking Tobacco: Never AssessedSex and Gender InformationValueDate RecordedSex Assigned at BirthNot on fileLegal Sex Male07/31/2022 11:15 PM EDTGender IdentityNot on fileSexual OrientationNot on file Last Filed Vital Signs Vital SignReadingTime TakenCommentsBlood Syiyjull428/8806/11/2021 12:00 PM EST Pulse--Temperature--Respiratory Rate--Oxygen Saturation--Inhaled Oxygen Concentration--Ljghzm125 kg (303 lb)06/11/2021 12:00 PM BZCJxkfss275.4 cm (6' 1 )06/11/2021 12:00 PM ESTBody Mass Index39.9801/ 12:00 PM EST Plan of Treatment Not on file
--- OUTSIDE RECORDS SUMMARY | 2025-05-10 10:47 | XMS_ITS | Patient Health Record ---
Author Organization [facility] [place] Address [address] [place] [address] Care Team Providers Care Portrait Photographer Name Role Phone Jan Waddell Primary Care Provider Allergies No Known Allergies Results Component Value Reference Range Notes GLYCOHEMOGLOBIN A1C Reviewed date:05/17/2024 08:23:50 PM Interpretation: Performing Lab: Notes/Report: [facility] , Glycohemoglobin A1C 5.5 4.5-6.2 % ADA RECOMMENDED LIMIT 4.0 - 6.0 ADA THERAPEUTIC TARGET < 7.0 ACTION SUGGESTED > 7.0 Estimated Average Glucose 111 Performing Lab:see noteML - [facility] LBLIPID PROFILE Reviewed date:05/17/2024 08:23:50 PM Interpretation: Performing Lab: Notes/Report: [facility] ,Votxvykwrcjdv179<=150 mg/mMHucxokeszqp967<=200 mg/dLHDL Oskoysijonr1779-55 mg/dL > or =60 mg/dl - LOW CARDIOVASCULAR RISK <40 mg/dl - HIGH CARDIOVASCULAR RISK LDL Cholesterol Kktmminavr005.0 <100 mg/dl OPTIMAL 100-129 mg/dl NEAR OR ABOVE OPTIMAL 130-159 mg/dl BORDERLINE HIGH 160-189 mg/dl HIGH >190 mg/dl VERY HIGH VLDL XQGIPFBYRLV73.2Chol HDL Ratio5.3 3.3 - 4.4 LOW RISK 4.4 - 7.1 AVERAGE RISK 7.1 - 11.0 MODERATE RISK >11.0 HIGH RISK Performing Lab:see noteML - [facility] LBPROF 14(COMP METB) Reviewed date:05/17/2024 08:23:50 PM Interpretation: Performing Lab: Notes/Report: [facility] ,Numcht688637-370 mmol/LPotassium4.43.5-5.1 mmol/WEjqsyuwn13424-445 mmol/LCarbon Jiycfjj24.221.0-32.0 mmol/LAnion Gap13.8Dyzhsdq34748-174 mg/dLBlood Urea Fazkhrsn62.07.0-18.0 mg/dLCreatinine0.940.70-1.30 mg/dLEstimated GFR ( Candace>60>=60 mL/min/1.73m 2Estimated GFR (Non- Connie>60>=60 mL/min/1.73m 2BUN Creatinine Ratio13.4Jskpbvl9.98.5-10.1 mg/dLBilirubin Total0.70.2-1.0 mg/dL Aspartate Amino Lsmbjqnfnmt9354-24 U/LAlanine Dcirteziqajtgkpr1077-55 U/L Alkaline Ayurkexomfz4644-003 U/LTotal Protein6.96.4-8.2 g/dLAlbumin Level3.53.4- 5.0 g/dLGlobulin3.4Albumin Globulin Ratio1.0Performing Lab:see noteML - [facility] LBNM brigette perf SPECT rest str Reviewed date:03/18/2025 01:01:10 PM Interpretation: Performing Lab: Notes/Report: Source Facility: [facility]-[address] [place] [address] [place] [address] Nuclear Medicine Report Signed Patient: JOSH FLORES MR#: [id number] : 1970 Acct:[id number] Age/Sex: 54 / M ADM Date: 03/17/25 Loc: CARD Attending Dr: Abhilash Waddell M.D. Ordering Physician: Abhilash Waddell M.D. Date of Service: 03/17/25 Procedure(s): NM brigette perf SPECT rest str Accession Number(s): [id number] cc: Abhilash Waddell M.D. Patient Name: JOSH FLORES MR#: [id number] : 1970 Exam Date: 03/17/2025 Ordering Doctor: DR ABHILASH WADDELL . RADIOLOGY REPORT PROCEDURE: NM BRIGETTE PERF SPECT REST STR COMPARISON: None. INDICATIONS: CHEST PAIN TECHNIQUE: Exam Description: Stress/Rest two day protocol gated SPECT Rest Imagin.7 mCi Tc-99m Cardiolite IV on 03/18/2025 Stress Imaging 25.2 mCi Tc-99m Cardiolite IV on 03/17/2025 Exercise Protocol: Abe Heart Rate (bpm): Rest: 80 Max: 153 PMHR: 92 Blood Pressure: Rest: 140/78 Max: 170/90 Exercise Time: Minutes: 5 Seconds: 02 Stage Reached: Stage: 2 Mets 7.0 Symptoms: Rest and peak stress ECG findings were pending, and the exercise portion of the study was pending per attending physician [facility]. For more details, please see separate cardiac stress test report. FINDINGS: QUALITY OF STUDY: Good PERFUSION DEFECT: LOCATION: Inferoapical SIZE: Large SEVERITY: Moderate TYPE: Reversible WALL MOTION: Hypokinesis of the inferior wall LV SIZE: 154 mL. TID / TCD: 1.0 LVEF: Calculated EF 53%. SUMMARY: Myocardial perfusion imaging study is abnormal CONCLUSION: 1. Myocardial perfusion is abnormal with soft tissue attenuation 2. There is a large, predominantly reversible, inferoapical perfusion defect consistent with ischemia 3. Global left ventricular systolic function is lower normal limits; ejection fraction 50 to 53% 4. No significant transient ischemic dilatation Dictated by: Cornell Spencer M.D. on 03/18/2025 at 10:56 Approved by: Cornell Spencer M.D. on 03/18/2025 at 11:00 Dictated By: Cornell Spencer M.D. Signed By: 03/18/25 1101 DD/ 1100 TD/TT: Nut Tapper: Reason For Referral Reason Appointment April 08 Diagnosis 1 Abnormal stress test (R94.39) Diagnosis 2 RCA occlusion (I24.0 ) Referral Organization [facility] Medicine Referring Provider First Name Jan Referring Provider Last Name Lester Referring Provider Speciality Family Med icine Referred Provider [facility] Cardiology, [facility] Referred Provider Specialty Cardiology Referral Priority Routine Medications Medication SIG (Take, Route, Frequency, Duration) Notes Start Date End Date Status Losartan Potassium 25 MG 1 tablet Orally Once a day 5ActiveAtorvastatin Calcium 40 MG1 tablet Orally Once a day03/22/2025 ActiveCPAP -use as directed with previous setting; Duration: 365 days09/03/2024 ActiveMetoprolol Tartrate 50 MG1 tablet with food Orally Twice a day; Duration: 30 daysActiveOmeprazole 20 MG1 capsule 1/2 to 1 hour before morning meal Orally Once a dayUnknownNitroglycerin 0.4 MG1 sl Sublingual Q 5 min as needed for chest pain5ActiveAspirin 81 81 MG1 tablet Orally Once a day5Active Social History Tobacco Use: Social History Observation [...] containing alcohol in the past year?Weekly (3 points)Trogbh2GgnkeddjotedjqOrjmaycqAVYGO-B (Standard) Question Answer Notes Did you have [...] W/U Status Risk Notes Problem Essential hypertension (47540880 ) Essential (primary) hypertension (I10) ActiveconfirmedProblemHypertension (13745339)Hypertension (I10)Activeconfirmed ProblemSleep apnea (32237494)Sleep apnea (G47.30)ActiveconfirmedProblemEczema (38175590)Eczema (L30.9)ActiveconfirmedProblemWell adult (451601020)Well adult (Z00.00)ActiveconfirmedProblemRight upper quadrant pain (114851284)Right upper quadrant abdominal pain (R10.11)ActiveconfirmedProblemAcute coronary artery occlusion not resulting in myocardial infarction (54901841793820)RCA occlusion (I24.0)Activeconfirmed Vital Signs Blood pressure diastolic 80 mm Hg 02/25/2025 Ddzmbd79 in02/25/2025lood pressure lnjmidnv398 mm Hg02/25/20251767Dracuc919 lbs 02/25/2025BMI39.71 kg/m202/25/2025 Procedures Procedure Date Ordered Date Performed Result Body Sit e ECG with Interpretation 02/25/2025 N/A Encounters Encounter Location Date Provider Diagnosis [facility] [address] [place] [address] 05/17/2024 Jan Hoy Hypertension I10 and Right upper quadrant abdominal pain R10.11 [facility] [address] [place] [address] 09/03/2024 Jan Hoy Sleep apnea G47.30 a nd Eczema L30.9 [facility] [address] [place] [address] 02/25/2025 Jan Hoy Chest pain R07.9 and Acute bronchitis, unspecified organism J20.9 [facility] [address] [place] [address] 05/17/2024 Jan Hoy [facility] [place] [address] 03/18/2025Doug [facility] [place] [address]/31/2025Doug [facility] [place] [address]/03/2025Doug HoyAbnormal stress test R94.39 and RCA occlusion I24.0[facility] [place] [address]/04/2025Doug Hoy Assessments Encounter Date Diagnosis (ICD Code) Assessment Notes Treatment Notes Treatment Clinical Notes Section Notes 05/17/2024 Hypertension (ICD-10 - I10) 4Right upper quadrant abdominal pain (ICD-10 - R10.11)09/03/2024Sleep apnea (ICD-10 - G47.30)09/03/2024Eczema (ICD-10 - L30.9)02/25/2025hest pain (ICD-10 - R07.9)03/21/2025bnormal stress test (ICD-10 - R94.39)03/21/2025RCA occlusion (ICD-10 - I24.0)5Acute bronchitis, unspecified organism (ICD- 10 - J20.9)Rest and drink more liquids, especially water. You may use a humidifier or vaporizer to help keep the drainage moist. Iqch-zra-keycknz Nasal Saline may help the stuffy and runny nose. Use Ibuprofen and or Tylenol as needed for fever, chills, body aches or pain. Children 5 years old should not be given khlb-noj-guluxdl cough and cold medications such as guaifenesin and dextromethorphan. If you're over age 5, you may try hibg-qdm-sjjypda cold medications such as guaifenesin and dextromethorphan, [...] PANEL (CHOL/TRIG/HDL/LDL) 10/19/19 23 CBC WITH DIFF (EXP 03/2025) 10/18/2022 PSA, PROSTATE-SPECIFIC ANTIGEN 3 URIC ACID [...] Coverage Start Date Coverage End Date [employer] [place] [address] [place] [address] [id number] Saeid Flores - patient is the insured Medical (General) History Medical History History ICD Code Plantar fascia syndrome M72.2 Osteoarthritis M19.90 Diabetes mellitus type 2 in nonobese E11 .9 Hypertension I10 Apnea, sleep G47.30 Surgical History Surgery Date(Month/Year) heart cath 03/18/2025 Nose Colonoscopyvasectomy
--- OUTSIDE RECORDS SUMMARY | 2025-05-10 10:47 | XMS_ITS | Clinical Summary ---
Author Organization [facility] Address [address] [place] [address] Phone Care Team Providers Care Artificial Stone Setter Name Role Phone Abhilash Batista MD Primary Care Provider [phone] Active Problems ProblemNoted DateDiagnosed DateAbnormal cardiovascular stress test03/31/2025 Acute occlusion of coronary artery without myocardial okmwhirdnr85/13/2025 Current gjeuyu3703/31/2025High seriewbjwgw05/13/2025Sleep apnea03/31/2025Unstable angina tuthhmii09/13/2025History of transcatheter aortic valve replacement (TAVR)03/31/2025GERD (gastroesophageal reflux disease)2Chest pain 05/15/2021ssential hypertension, izifta7505/15/2021 Encounters DateTypeDepartmentCare AygkBbdngzchssw43/31/2025Scanned Document [facility] [address] [place] [id number] Scanning, Generic Provider from Last 3 Months Social History Tobacco UseTypesPacks/DayYears UsedDateSmoking Tobacco: Never AssessedSex and Gender InformationValueDate RecordedSex Assigned at BirthNot on fileLegal Sex Male04/12/2022 11:40 AM ESTGender IdentityNot on fileSexual OrientationNot on file Last Filed Vital Signs Vital SignReadingTime TakenCommentsBlood Hbitsvnj526/78006/04/2021 10:22 AM EST Hpbyr7688/17/2022 10:21 AM ESTTemperature--Respiratory Rate--Oxygen Saturation-- Inhaled Oxygen Concentration--Mphixy036 kg (304 lb)06/04/2021 10:21 AM ESTHeight 185.4 cm (6' 1 )06/04/2021 10:21 AM ESTBody Mass Index40.11006/04/2021 10:21 AM EST Plan of Treatment Health MaintenanceDue DateLast DoneCommentsCT Vzehxrpdafof42/15/1971FIT-DNA (Cologuard)1970FIT1970HIV Olwdnnbom39/15/1971Lipid Panel1970 Tsyhucjvtewzh78/15/1971Yearly Adult Wygsbxdh05/15/1971MMR Vaccines (1 of 1 - Standard series)09/01/1971Diabetes Ngaindahu94/15/1989Hepatitis C Screening 1988Hepatitis B Vaccines (1 of 3 - 19+ 3-dose series)1989 Pneumococcal Vaccine (1 of 2 - PCV)1989DTaP/Tdap/Td Vaccines (1 - Tdap) 1992PSA Prostate Cancer Zoyockvgy65/15/2021Zoster Vaccines (1 of 2) 2020Influenza Vaccine (#1)5COVID-19 Vaccine (1 - season) 0593Lcewqrzszjq862Colorectal Cancer Rorckgemx47/18/2032 Irritable Bowel QdxushouJiptlidkltqv93/18/2022HIB VaccinesAged OutNo longer eligible based on patient's age to complete this topicHPV VaccinesAged OutNo longer eligible based on patient's age to complete this topicHepatitis A VaccinesAged OutNo longer eligible based on patient's age to complete this topic IPV VaccinesAged OutNo longer eligible based on patient's age to complete this topicMeningococcal VaccineAged OutNo longer eligible based on patient's age to complete this topicRotavirus VaccinesAged OutNo longer eligible based on patient's age to complete this topic Procedures Procedure NamePriorityDate/TimeAssociated DiagnosisCommentsCARDIAC CATHETERIZATION PROCEDURE - ONBASE SCAN03/18/2025 OUTSIDE IMAGING SCAN03/18/2025 from Last 3 Months Results * Cardiac Catheterization - Onbase Scan (03/18/2025) Narrative 03/18/2025 Ordered by an unspecified provider. Authorizing ProviderResult TypeResult StatusGeneric Provider ScanningCV CARDIAC CATH PROCEDURESFinal Result * OUTSIDE IMAGING SCAN (03/18/2025)Anatomical RegionLateralityModalityOther Narrative 03/18/2025 Ordered by an unspecified provider. Authorizing ProviderResult TypeResult StatusGeneric Provider ScanningOUTSIDE SCANFinal Result from Last 3 Months Care Teams Team MemberRelationshipSpecialtyStart DateEnd Date Abhilash Batista MD [address] [id number] PCP - General05/19/99
--- OUTSIDE RECORDS SUMMARY | 2025-05-10 10:47 | XMS_ITS | Clinical Summary ---
Author Organization [facility] Address [address] [place] [address] Care Team Providers Care Professor Of Religious Studies Name Role Phone Abhilash Batista MD Primary Care Provider [phone] Allergies No known active allergies Medications MedicationSigDispense QuantityRefillsLast FilledStart DateEnd DateStatus losartan (Cozaar) 25 mg tablet Take 25 mg by mouth 1 (one) time each day at the same time.5Active metoprolol tartrate (Lopressor) 50 mg tablet Take 50 mg by mouth two times daily.5Active aspirin 81 mg EC tablet Take 81 mg by mouth 1 (one) time each day at the same time.5Active atorvastatin (Lipitor) 40 mg tablet Take 40 mg by mouth at bedtime.5Active nitroglycerin (Nitrostat) 0.[address] 0.4 mg under the tongue every 5 (five) minutes if needed.5Active ezetimibe (Zetia) 10 mg tablet Indications:Mixed hyperlipidemia,Coronary artery disease of [place] artery of [place] heart with stable angina pectorisTake 1 tablet (10 mg) by mouth in the morning. 90 tablet 6Active isosorbide mononitrate ER (Imdur) 60 mg 24 hr tablet Indications:Coronary artery disease of [place] artery of [place] heart with stable angina pectorisTake 1 tablet (60 mg) by mouth in the morning. Do not crush or chew. 90 tablet ctive Active Problems ProblemNoted DateDiagnosed QynhJzkszg51/21/2025HTN (hypertension)04/08/2025Right upper quadrant pain04/08/2025bnormal cardiovascular stress test03/31/2025ute coronary thrombosis not resulting in myocardial qyhvxhmoft57/13/2025urrent yhjnqh9003/31/2025High tjkgtwutbie72/13/2025History of transcatheter aortic valve replacement (TAVR)03/31/2025Sleep apnea03/31/2025Unstable angina pectoris 03/31/2025GERD (gastroesophageal reflux disease)2Chest pain05/15/2021 Essential hypertension, eumqsd5805/15/2021 Encounters DateTypeDepartmentCare NobxKbmwyemdasu67/01/2025Orders Only [facility] [address] [place] [address] Julia White MA Coronary artery disease with stable angina pectoris, unspecified vessel or lesion type, unspecifiedwhether [place] or transplanted heart (Primary Dx) 04/08/2025 9:45 AM ESTOffice Visit [facility] [address] [place] [address] Tyron Reyna MD Coronary artery disease of [place] artery of [place] heart with stable angina pectoris (Primary Dx); Shortness of breath; Mixed hyperlipidemia; Primary hypertensionfrom Last 3 Months Family History Medical HistoryRelationNameCommentsHeart attackFather's BrotherDiabetes type I MotherDiabetes type IIMothercarotid artery stenosisMotherHeart attackPaternal GrandfatherRelationNameStatusCommentsFather's BrotherDeceasedMotherDeceased Paternal GrandfatherDeceased Social History Tobacco UseTypesPacks/DayYears UsedDateSmoking Tobacco: Every DayCigarettes Smokeless Tobacco: Never Tobacco Cessation:Ready to Q uit: Not Asked; Counseling Given: Not Answered Sex and Gender InformationValueDate RecordedSex Assigned at CzolxCwix76/17/2025 1:57 PM ESTLegal NpjHljt83/04/2025 10:26 AM ESTGender BqvmngkfQfic51/17/2025 1:57 PM ESTSexual OrientationHeterosexual or Arhhwzsm76/17/2025 1:57 PM EST Last Filed Vital Signs Vital SignReadingTime TakenCommentsBlood Tlhhgabk560/8211/ 9:54 AM EST Dtxkf154104/08/2025 9:54 AM ESTTemperature--Respiratory Rate--Oxygen Oocpruhrid78% 04/08/2025 9:54 AM ESTInhaled Oxygen Concentration--Uapfhx361 kg (292 lb) 04/08/2025 9:54 AM HJYItvymp703.4 cm (6' 1 )04/08/2025 9:54 AM ESTBody Mass Index38.5204/08/2025 9:54 AM EST Plan of Treatment DateTypeDepartmentCare Team (Latest Contact Info)Bjrzxydbnhs09/31/2025 9:45 AM ESTOffice Visit [facility] [address] [place] [address] Tyron Reyna MD [address] [facility] [place] [address] Health MaintenanceDue DateLast DoneCommentsCT Zrvptjpubqde57/15/1971Colonoscopy 1970Colorectal Cancer Llsaqtnlb32/15/1971FIT-DNA1970FIT1970 FOBT1970 9755Tomqrxqzybfaz73/15/1971Depression Olidvtlyb83/15/1983Hepatitis B Vaccines (1 of 3 - 19+ 3-dose series)1989Pneumococcal Vaccine: Pediatrics (0 to 5 Years) and At-Risk Patients (6 to 64 Years) (1 of 2 - PCV)1989 Adult Tlbxejv5408/31/1992Zoster Vaccines (1 of 2)1COVID-19 Vaccine ( - season)2025Influenza Vaccine (#1)2025HIB VaccinesAged OutNo longer eligible based on patient's age to complete this topicHPV VaccinesAged OutNo longer eligible based on patient's age to complete this topicIPV Vaccines Aged OutNo longer eligible based on patient's age to complete this topic Meningococcal B VaccineAged OutNo longer eligible based on patient's age to complete this topicMeningococcal VaccineAged OutNo longer eligible based on patient's age to complete this topicRotavirus VaccinesAged OutNo longer eligible based on patient's age to complete this topic Insurance * Guarantor: Jay Flores TypeRelation to PatientDate of BirthPhone Billing AddressPersonal/XekpkcBhhi75/[birth year]/[address] [place] [address] Care Teams Team MemberRelationshipSpecialtyStart DateEnd Abhilash Batista MD [address] [place] [address] PCP - GeneralFamily Tbdrlmwc10/4/25
--- OUTSIDE RECORDS SUMMARY | 2025-05-10 10:47 | XMS_ITS | Clinical Summary ---
Author Organization [facility] Address [address] [place] [address], [address] [place] [address] Care Team Providers Care Regional Hr Manager Name Role Phone Unavailable Primary Care Provider Unavailabl e Social History Tobacco UseTypesPacks/DayYears UsedDateSmoking Tobacco: Never AssessedSex and Gender InformationValueDate RecordedSex Assigned at BirthNot on fileLegal Sex Male06/28/2012 2:56 AM ESTGender IdentityNot on fileSexual OrientationNot on file Plan of Treatment Not on file
[2025-05-10 11:00] LABS: Hemoglobin 16.0 g/dL (14.0-18.0)
[2025-05-10] MEDS: ALBUTEROL SULFATE 2.5 MG/3 ML VIAL NEB IH (11:35)
--- NOTE | 2025-05-10 12:00 | CA_ITS ---
Patient Name: JOSH KEMP MR#: [id number] : 1970 Exam Date: 05/10/2025 Ordering Doctor: DR YULIYA REYNA M.D. ECHOCARDIOGRAM REPORT PROCEDURE: CA ECHO DOPPLER COMPLETE INDICATIONS: Shortness of breath, coronary artery disease, hypertension, smoker COMPARISON: None. DESCRIPTION: COMPLETE ECHOCARDIOGRAM Real-time transthoracic echocardiography with 2D, M-mode, spectral and color flow Doppler performed. QUALITY: Technical quality was good. LEFT VENTRICLE: Normal chamber size. Mild concentric left ventricular hypertrophy. Normal systolic function. Estimated left ventricular ejection fraction is 55-60%. LV EF: Normal left ventricular ejection fraction, (>55%). DIASTOLIC: Diastolic function is indeterminate. ATRIAL SEPTUM: Visually appears intact. LEFT ATRIUM: Normal chamber size. RIGHT ATRIUM: Normal chamber size. RIGHT VENTRICLE: Normal chamber size. Normal right ventricular systolic function. TRICUSPID VALVE: Normal mobility and thickness. No stenosis with trivial regurgitation. Unable to assess right-sided pressure due to the lack of measurable tricuspid regurgitation. MITRAL VALVE: Normal mobility and thickness. No evidence of mitral valve stenosis. There is no mitral annular calcification. No mitral regurgitation. AORTIC VALVE: Normal trileaflet appearance. No visible sclerosis. Normal leaflet mobility. No evidence of aortic valve stenosis. No aortic regurgitation. AORTIC ROOT: Mildly dilated aortic root measuring 4.1 cm. PULMONIC VALVE: Normal thickness and mobility. No stenosis. No regurgitation. PERICARDIUM: No evidence of pericardial effusion. IVC: Collapses with inspiration. IVC is normal in size. PLEURA: CONCLUSION: 1. Mild concentric left ventricular hypertrophy with normal systolic function. Estimated LVEF is 55 to 60%. 2. Normal right ventricular size and systolic function. 3. No significant valvular dysfunction. 4. Unable to assess right-sided pressures due to lack of measurable tricuspid regurgitation. 5. Mildly dilated aortic root measuring 4.1 cm. Adult Echocardiography Procedure Report Left Ventricle LVEDD (3.7 - 5.6 cm): 5.18 cm LVESD (2.2 - 4.0 cm): 3.25 cm LVIVS thickness (0.6 - 1.2 cm): 1.31 cm LVPW thickness (0.5 - 1.0 cm): 1.32 cm e': 0.08 m/s E - e': 6.93 LVOT Max Gradient: 5.14 mm[Hg] LVOT Area (cm2): 1.13 m/s Peak Velocity (LVOT): 1.13 m/s Mean Velocity (LVOT): 0.66 m/s LVOT Diameter 2.05 cm Left Ventricular Ejection Fraction: 55-60 % Left Atrium LA Volume Index (2D A2C): 26.01 ml/m2 Left Atrium Systolic Dimension: 3.98 cm Mitral Valve MV E to A Ratio: 0.74 Mitral Valve A-Wave Peak Velocity: 0.77 m/s Mitral Valve E-Wave Peak Velocity: 0.57 m/s Right Ventricle Aorta AO Root Diam: 4.08 cm Aortic Valve AoV Area (Peak Vick): 2.73 cm2, 2.73 cm2 AoV Area (VTI): 3.32 cm2, 3.32 cm2 Peak Velocity(Antegrade Flow): 1.37 m/s Peak Gradient(Antegrade Flow): 7.55 mm[Hg] Mean Velocity(Antegrade Flow): 0.73 m/s Mean Gradient(Antegrade Flow): 2.80 mm[Hg] Velocity Time Integral: 25.55 cm Tricuspid Valve Pulmonic Valve Mean Gradient: 1.59 mm[Hg] Mean Velocity: 0.60 m/s Peak Velocity: 0.86 m/s Peak Gradient: 2.97 mm[Hg] Right Atrium Right Atrium Systolic Pressure: 29.03 ml, 29.03 ml Dictated by: Yuliya Reyna M.D. on 05/10/2025 at 23:51 Approved by: Yuliya Reyna M.D. on 05/10/2025 at 23:54
== END 2025-05-10 10:41 | disposition home or self-care (01) ==
PROVIDERS: PCP Family Medicine; Visit Provider Internal Medicine Interventional Cardiology
DX: I25.118 Atherosclerotic heart disease of native coronary artery with other forms of angina pectoris (principal); R06.02 Shortness of breath
CPT/HCPCS: 36415; 85018; 93306; 94060; 94726; 94729

== ENCOUNTER 2025-05-13 10:59 | Outpatient (OUT) | payer OTHER, SELFPAY ==
--- OUTSIDE RECORDS SUMMARY | 2025-05-13 11:03 | XMS_ITS | Clinical Summary ---
Author Organization [facility] Address [address] [place] [address] Care Team Providers Care Sewing Machine Repairer Name Role Phone Abhilash Batista MD Primary Care Provider [phone] Allergies No known active allergies Medications MedicationSigDispense [...] mg tablet Indications:Mixed hyperlipidemia,Coronary artery disease of [place] artery of [place] heart with stable angina pectorisTake 1 tablet (10 mg) by mouth in the morning. 90 tablet 6Active isosorbide mononitrate ER (Imdur) 60 mg 24 hr tablet Indications:Coronary artery disease of [place] artery of [place] heart with stable angina pectorisTake 1 tablet (60 mg) by mouth in the morning. Do not crush or chew. 90 tablet ctive Active Problems ProblemNoted DateDiagnosed YhdjAkvlls97/21/2025HTN (hypertension)04/08/2025Right upper quadrant pain04/08/2025bnormal cardiovascular stress test03/31/2025ute coronary thrombosis not resulting in myocardial tvglqgeuqy01/13/2025urrent pidcab9203/31/2025High fjrhhnfyetn67/13/2025History of transcatheter aortic valve replacement (TAVR)03/31/2025Sleep apnea03/31/2025Unstable angina pectoris 03/31/2025GERD (gastroesophageal reflux disease)2Chest pain05/15/2021 Essential hypertension, qkiqgx5005/15/2021 Encounters DateTypeDepartmentCare RcvxWpmdvlkspqu70/01/2025Orders Only [facility] [address] [place] [address] Julia White MA Coronary artery disease with stable angina pectoris, unspecified vessel or lesion type, unspecifiedwhether [place] or transplanted heart (Primary Dx) 04/08/2025 9:45 AM ESTOffice Visit [facility] [address] [place] [address] Tyron Reyna MD Coronary artery disease of [place] artery of [place] heart with stable angina pectoris (Primary Dx); [...] Sex and Gender InformationValueDate RecordedSex Assigned at NjwkjYgml11/17/2025 1:57 PM ESTLegal PvrDhxt16/04/2025 10:26 AM ESTGender SinrtlcoIkci24/17/2025 1:57 PM ESTSexual OrientationHeterosexual or Dmmubhzm72/17/2025 1:57 PM EST Last Filed Vital Signs Vital SignReadingTime TakenCommentsBlood Eirbumts573/8211/ 9:54 AM EST Zqils481204/08/2025 9:54 AM ESTTemperature--Respiratory Rate--Oxygen Qlxkaccmmg75% 04/08/2025 9:54 AM ESTInhaled Oxygen Concentration--Ekqgei844 kg (292 lb) 04/08/2025 9:54 AM GTWKkvbft129.4 cm (6' 1 )04/08/2025 9:54 AM ESTBody Mass Index38.5204/08/2025 9:54 AM EST Plan of Treatment DateTypeDepartmentCare Team (Latest Contact Info)Gcrisivoqzl65/31/2025 9:45 AM ESTOffice Visit [facility] [address] [place] [address] Tyron Reyna MD [address] [facility] [place] [address] Health MaintenanceDue DateLast DoneCommentsCT Ttllrhavqxyw56/15/1971Colonoscopy 1970Colorectal Cancer Mtlsznccc69/15/1971FIT-DNA1970FIT1970 FOBT1970 0195Biqhoyjmjfajn95/15/1971Depression Wtwbawbvw37/15/1983Hepatitis B Vaccines (1 of 3 - 19+ 3-dose series)1989Pneumococcal Vaccine: Pediatrics (0 to 5 Years) and At-Risk Patients (6 to 64 Years) (1 of 2 - PCV)1989 Adult Jijhzdk7008/31/1992Zoster Vaccines (1 of 2)1COVID-19 Vaccine ( - [...] Flores TypeRelation to PatientDate of BirthPhone Billing AddressPersonal/SdiourIeac36/15/[address] [place] [address] Care Teams Team MemberRelationshipSpecialtyStart DateEnd Abhilash Batista MD [address] [place] [address] PCP - GeneralFamily Omslboji65/4/25
--- OUTSIDE RECORDS SUMMARY | 2025-05-13 11:03 | XMS_ITS | Patient Health Record ---
Author Organization [facility] in [place] Address [address] [place] [address] Care Team Providers Care Machine Hostler Name Role Phone Jan Waddell Primary Care Provider Allergies No Known Allergies Results Component Value Reference Range Notes HEMOGLOBIN Reviewed date:05/10/2025 01:18:08 PM Interpretation: Performing Lab: Notes/Report: [facility] , Hemoglobin 16.0 14.0-18.0 g/dL Performing Lab:see noteML - [facility] LBCA echo doppler complete Reviewed date:05/12/2025 11:50:35 AM Interpretation: Performing Lab: Notes/Report: Source Facility: [place] [address] Cardiology Report Signed Patient: JOSH FLORES MR#: [id number] : 1970 Acct:[id number] Age/Sex: 54 / M ADM Date: 05/10/25 Loc: CARD Attending Dr: YULIYA REYNA Ordering Physician: YULIYA REYNA Date of Service: 05/10/25 Procedure(s): CA echo doppler complete Accession Number(s): [id number] cc: Silvia Waddell M.D.; YULIYA REYNA Patient Name: JOSH FLORES MR#: [id number] : 1970 Exam Date: 05/10/2025 Ordering Doctor: DR YULIYA REYNA M.D. ECHOCARDIOGRAM REPORT PROCEDURE: CA ECHO DOPPLER COMPLETE INDICATIONS: Shortness of breath, coronary artery disease, hypertension, smoker COMPARISON: None. DESCRIPTION: COMPLETE ECHOCARDIOGRAM Real-time transthoracic echocardiography with 2D, M-mode, spectral and color flow Doppler performed. QUALITY: Technical quality was good. LEFT VENTRICLE: Normal chamber size. Mild concentric left ventricular hypertrophy. Normal systolic function. Estimated left ventricular ejection fraction is 55-60%. LV EF: Normal left ventricular ejection fraction, (>55%). DIASTOLIC: Diastolic function is indeterminate. ATRIAL SEPTUM: Visually appears intact. LEFT ATRIUM: Normal chamber size. RIGHT ATRIUM: Normal chamber size. RIGHT VENTRICLE: Normal chamber size. Normal right ventricular systolic function. TRICUSPID VALVE: Normal mobility and thickness. No stenosis with trivial regurgitation. Unable to assess right-sided pressure due to the lack of measurable tricuspid regurgitation. MITRAL VALVE: Normal mobility and thickness. No evidence of mitral valve stenosis. There is no mitral annular calcification. No mitral regurgitation. AORTIC VALVE: Normal trileaflet appearance. No visible sclerosis. Normal leaflet mobility. No evidence of aortic valve stenosis. No aortic regurgitation. AORTIC ROOT: Mildly dilated aortic root measuring 4.1 cm. PULMONIC VALVE: Normal thickness and mobility. No stenosis. No regurgitation. PERICARDIUM: No evidence of pericardial effusion. IVC: Collapses with inspiration. IVC is normal in size. PLEURA: CONCLUSION: 1. Mild concentric left ventricular hypertrophy with normal systolic function. Estimated LVEF is 55 to 60%. 2. Normal right ventricular size and systolic function. 3. No significant valvular dysfunction. 4. Unable to assess right-sided pressures due to lack of measurable tricuspid regurgitation. 5. Mildly dilated aortic root measuring 4.1 cm. Adult Echocardiography Procedure Report Left Ventricle LVEDD (3.7 - 5.6 cm): 5.18 cm LVESD (2.2 - 4.0 cm): 3.25 cm LVIVS thickness (0.6 - 1.2 cm): 1.31 cm LVPW thickness (0.5 - 1.0 cm): 1.32 cm e': 0.08 m/s E - e': 6.93 LVOT Max Gradient: 5.14 mm[Hg] LVOT Area (cm2): 1.13 m/s Peak Velocity (LVOT): 1.13 m/s Mean Velocity (LVOT): 0.66 m/s LVOT Diameter 2.05 cm Left Ventricular Ejection Fraction: 55-60 % Left Atrium LA Volume Index (2D A2C): 26.01 ml/m2 Left Atrium Systolic Dimension: 3.98 cm Mitral Valve MV E to A Ratio: 0.74 Mitral Valve A-Wave Peak Velocity: 0.77 m/s Mitral Valve E-Wave Peak Velocity: 0.57 m/s Right Ventricle Aorta AO Root Diam: 4.08 cm Aortic Valve AoV Area (Peak Vick): 2.73 cm2, 2.73 cm2 AoV Area (VTI): 3.32 cm2, 3.32 cm2 Peak Velocity(Antegrade Flow): 1.37 m/s Peak Gradient(Antegrade Flow): 7.55 mm[Hg] Mean Velocity(Antegrade Flow): 0.73 m/s Mean Gradient(Antegrade Flow): 2.80 mm[Hg] Velocity Time Integral: 25.55 cm Tricuspid Valve Pulmonic Valve Mean Gradient: 1.59 mm[Hg] Mean Velocity: 0.60 m/s Peak Velocity: 0.86 m/s Peak Gradient: 2.97 mm[Hg] Right Atrium Right Atrium Systolic Pressure: 29.03 ml, 29.03 ml Dictated by: Yuliya Reyna M.D. on 05/10/2025 at 23:51 Approved by: Yuliya Reyna M.D. on 05/10/2025 at 23:54 Dictated By: YULIYA REYNA Signed By: 05/10/252354 DD/ 53 TD/TT: Car Seat Coverer:PROF Ibarra(COMP METB) Reviewed date:05/17/2024 08:23:50 PM Interpretation: Performing Lab: Notes/Report: [facility] ,Vqifgw540391-110 mmol/LPotassium4.43.5-5.1 mmol/PGnpkrzpr18019-134 mmol/LCarbon Hvyujjz44.221.0-32.0 mmol/LAnion Gap13.7Itrlhbh29565-825 mg/dLBlood Urea Xvngffdn81.07.0-18.0 mg/dLCreatinine0.940.70-1.30 mg/dLEstimated GFR ( Candace>60>=60 mL/min/1.73m 2Estimated GFR (Non- Connie>60>=60 mL/min/1.73m 2BUN Creatinine Ratio13.8Gemvlap0.98.5-10.1 mg/dLBilirubin Total0.70.2-1.0 mg/dL Aspartate Amino Hdalyvfiobe2925-98 U/LAlanine Vjwmduajycwnbfhj9758-25 U/L Alkaline Efluxbvymft4059-957 U/LTotal Protein6.96.4-8.2 g/dLAlbumin Level3.53.4- 5.0 g/dLGlobulin3.4Albumin Globulin Ratio1.0Performing Lab:see noteML - [facility] LBLIPID PROFILE Reviewed date:05/17/2024 08:23:50 PM Interpretation: Performing Lab: Notes/Report: [facility] ,Upckoudvicsyn870<=150 mg/uITzrehbjxdjb921<=200 mg/dLHDL Olchikdexhz1447-50 mg/dL <40 mg/dl - HIGH CARDIOVASCULAR RISK > or =60 mg/dl - LOW CARDIOVASCULAR RISK LDL Cholesterol Urhjmnqdrp253.0 160-189 mg/dl HIGH >190 mg/dl VERY HIGH 130-159 mg/dl BORDERLINE HIGH 100-129 mg/dl NEAR OR ABOVE OPTIMAL <100 mg/dl OPTIMAL VLDL TKAAUAQGIZS47.2Chol HDL Ratio5.3 7.1 - 11.0 MODERATE RISK 3.3 - 4.4 LOW RISK 4.4 - 7.1 AVERAGE RISK >11.0 HIGH RISK Performing Lab:see noteML - [facility] LBGLYCOHEMOGLOBIN A1C Reviewed date:05/17/2024 08:23:50 PM Interpretation: Performing Lab: Notes/Report: [facility] ,Glycohemoglobin A1C5.54.5-6.2 % ADA RECOMMENDED LIMIT 4.0 - 6.0 ACTION SUGGESTED ADA THERAPEUTIC TARGET < 7.0 > 7.0 Estimated Average Jyuyhuk715Rdzlafjlts Lab:see noteML - [facility] LB NM delmy perf SPECT rest str Reviewed date:03/18/2025 01:01:10 PM Interpretation: Performing Lab: Notes/Report: Source Facility: [facility]-[address] [place] [address] [place] [address] Nuclear Medicine Report Signed Patient: JOSH FLORES MR#: [id number] : 1970 Acct:[id number] Age/Sex: 54 / M ADM Date: 03/17/25 Loc: CARD Attending Dr: Silvia Waddell M.D. Ordering Physician: Silvia Waddell M.D. Date of Service: 03/17/25 Procedure(s): NM delmy perf SPECT rest str Accession Number(s): [id number] cc: Silvia Waddell M.D. Patient Name: JOSH FLORES MR#: [id number] : 1970 Exam Date: 03/17/2025 Ordering Doctor: DR SILVIA WADDELL . RADIOLOGY REPORT PROCEDURE: NM DELMY PERF SPECT REST STR COMPARISON: None. INDICATIONS: [...] the study was pending per attending physician [facility]. For more details, please see separate cardiac [...] Signed By: 03/18/25 1101 DD/ 1100 TD/TT: Car Seat Coverer: Reason For Referral Reason Appointment April 08 Diagnosis 1 Abnormal stress test (R94.39) Diagnosis 2 RCA occlusion (I24.0 ) Referral Organization [facility] Medicine Referring Provider First Name Jan Referring Provider Last Name Lester Ref[facility] Referred Provider [facility]erred Provider Specialty Cardiology Referral Priority [...] containing alcohol in the past year?Weekly (3 points)Hqrmaj2PtzkkgepsbggwtLyreddvzWHSDD-T (Standard) Question Answer Notes Did you have [...] W/U Status Risk Notes Problem Essential hypertension (81672310 ) Essential (primary) hypertension (I10) ActiveconfirmedProblemHypertension (47549057)Hypertension (I10)Activeconfirmed ProblemSleep apnea (75203621)Sleep apnea (G47.30)ActiveconfirmedProblemEczema (48531329)Eczema (L30.9)ActiveconfirmedProblemWell adult (576078060)Well adult (Z00.00)ActiveconfirmedProblemRight upper quadrant pain (717357893)Right upper quadrant abdominal pain (R10.11)ActiveconfirmedProblemAcute coronary artery occlusion not resulting in myocardial infarction (39989294203667)RCA occlusion (I24.0)Activeconfirmed Vital Signs Blood pressure diastolic 80 mm Hg 02/25/2025 Chmcix20 in02/25/2025lood pressure wgaojbhv128 mm Hg02/25/20256993Gkfjjb468 lbs 02/25/2025BMI39.71 kg/m202/25/2025 Procedures Procedure Date Ordered Date Performed Result Body Sit e ECG with Interpretation 02/25/2025 N/A Encounters Encounter Location Date Provider Diagnosis [address] [place] [address] 05/17/2024 Jan Waddell [address] [place] [address] [facility] [place] [address]/2025Doug [facility] [place] [address]Doug yAbnormal stress test R94.39 and RCA occlusion I24.0[address] [place] [address] [place] [address]/4Doug HoyHypertension I10 and Right upper quadrant abdominal pain R10.11[facility] [place] [address]/Doug HoySleep apnea G47.[address] [facility] [place] [address] 10Doug HoyChest pain R07.9 and Acute bronchitis, unspecified organism J20.9 Assessments Encounter Date Diagnosis (ICD Code) Assessment Notes Treatment Notes Treatment Clinical Notes Section Notes 05/17/2024 Hypertension (ICD-10 - I10) 05/17/2024ight upper quadrant abdominal pain (ICD-10 - R10.11)09/03/2024Sleep apnea (ICD-10 - G47.30)09/03/2024Eczema (ICD-10 - L30.9)5Chest pain (ICD-10 - R07.9)03/21/2025bnormal stress test (ICD-10 - R94.39)03/21/2025RCA occlusion (ICD-10 - I24.0)5Acute bronchitis, unspecified organism (ICD- 10 - J20.9)Rest and drink more liquids, especially water. You may use a humidifier or vaporizer to help keep the drainage moist. Lrwj-iyn-whllnhr Nasal Saline may help the stuffy and runny nose. Use Ibuprofen and or Tylenol as needed for fever, chills, body aches or pain. Children 5 years old should not be given vytr-egp-acglghw cough and cold medications such as guaifenesin and dextromethorphan. If you're over age 5, you may try vkdd-mgz-jdoykvm cold medications such as guaifenesin and dextromethorphan, [...] End Date [employer] MI[employer] SALAS [address] [place] [address] [id number] Saeid Flores - patient is the insured Medical (General) History Medical History History ICD Code Plantar fascia syndrome M72.2 Osteoarthritis M19.90 Diabetes mellitus type 2 in nonobese E11 .9 Hypertension I10 Apnea, sleep G47.30 Surgical History Surgery Date(Month/Year) vasectomy ColonoscopyNoseheart cath03/18/2025
--- OUTSIDE RECORDS SUMMARY | 2025-05-13 11:03 | XMS_ITS | Clinical Summary ---
Author Organization [facility] Address [address] [facility] [place] [address] Care Team Providers Care Perfect Binder Feeder Offbearer Name Role Phone Unavailable Primary Care Provider Unavailabl e Medications MedicationSigDispense QuantityRefillsLast FilledStart DateEnd DateStatus etodolac (Lodine) 500 MG tablet Indications:ArthritisTAKE 1 TABLET BY MOUTH TWICE A DAY NEEDED 60 tablet 5Active omeprazole (PriLOSEC) [address] shanell Indications:Gastroesophageal reflux disease, unspecified whether esophagitis presentTAKE 1 CAPSULE BY MOUTH EVERY DAY 90 capsule 5Active Encounters DateTypeDepartmentCare QmzrRbwmtpdukvn68/26/2025Refill [facility] [address] [place] [address] Myron Kay DO Gastroesophageal reflux disease, unspecified whether esophagitis present 02/27/2025Refill [facility] [address] [place] [address] Myron Kay DO Arthritisfrom Last 3 Months Social History Tobacco UseTypesPacks/DayYears UsedDateSmoking Tobacco: Never AssessedSex and Gender InformationValueDate RecordedSex Assigned at BirthNot on fileLegal Sex Male07/31/2022 11:15 PM EDTGender IdentityNot on fileSexual OrientationNot on file Last Filed Vital Signs Vital SignReadingTime TakenCommentsBlood Qinkgjri363/8806/11/2021 12:00 PM EST Pulse--Temperature--Respiratory Rate--Oxygen Saturation--Inhaled Oxygen Concentration--Quxric566 kg (303 lb)06/11/2021 12:00 PM ZHWWzacci239.4 cm (6' 1 )06/11/2021 12:00 PM ESTBody Mass Index39.9801/ 12:00 PM EST Plan of Treatment Not on file
--- OUTSIDE RECORDS SUMMARY | 2025-05-13 11:03 | XMS_ITS | Clinical Summary ---
Author Organization [facility] Address [address] [place] [address], [address] [place] [address] Care Team Providers Care Retail Store Associate Name Role Phone Unavailable Primary Care Provider Unavailabl e Social History Tobacco UseTypesPacks/DayYears UsedDateSmoking Tobacco: Never AssessedSex and Gender InformationValueDate RecordedSex Assigned at BirthNot on fileLegal Sex Male06/28/2012 2:56 AM ESTGender IdentityNot on fileSexual OrientationNot on file Plan of Treatment Not on file
--- OUTSIDE RECORDS SUMMARY | 2025-05-13 11:03 | XMS_ITS | Clinical Summary ---
Author Organization [facility] Address [address] [place] [address] Phone Care Team Providers Care Lemon Picker Name Role Phone Abhilash Batista MD Primary Care Provider [phone] Active Problems ProblemNoted DateDiagnosed DateAbnormal cardiovascular stress test03/31/2025 Acute occlusion of coronary artery without myocardial rotidvyfwc12/13/2025 Current tghhyj9303/31/2025High asmpnejucsr16/13/2025Sleep apnea03/31/2025Unstable angina skoypbot77/13/2025History of transcatheter aortic valve replacement (TAVR)03/31/2025GERD (gastroesophageal reflux disease)2Chest pain 05/15/2021ssential hypertension, wwoaii5105/15/2021 Encounters DateTypeDepartmentCare XszzXucqehrbddu48/31/2025Scanned Document [facility] [address] [place] [address] Scanning, Generic Provider from Last 3 Months Social History Tobacco UseTypesPacks/DayYears UsedDateSmoking Tobacco: Never AssessedSex and Gender InformationValueDate RecordedSex Assigned at BirthNot on fileLegal Sex Male04/12/2022 11:40 AM ESTGender IdentityNot on fileSexual OrientationNot on file Last Filed Vital Signs Vital SignReadingTime TakenCommentsBlood Twfjtqes994/78006/04/2021 10:22 AM EST Iglxv0825/17/2022 10:21 AM ESTTemperature--Respiratory Rate--Oxygen Saturation-- Inhaled Oxygen Concentration--Lllrju412 kg (304 lb)06/04/2021 10:21 AM ESTHeight 185.4 cm (6' 1 )06/04/2021 10:21 AM ESTBody Mass Index40.11006/04/2021 10:21 AM EST Plan of Treatment Health MaintenanceDue DateLast DoneCommentsCT Gjelbovxtwok31/15/1971FIT-DNA (Cologuard)1970FIT1970HIV Smoqbfdvk74/15/1971Lipid Panel1970 Qghsbzlljsxbi40/15/1971Yearly Adult Axbkpeqa78/15/1971MMR Vaccines (1 of 1 - Standard series)09/01/1971Diabetes Hurzqekze74/15/1989Hepatitis C Screening 1988Hepatitis B Vaccines (1 of 3 - 19+ 3-dose series)1989 Pneumococcal Vaccine (1 of 2 - PCV)1989DTaP/Tdap/Td Vaccines (1 - Tdap) 1992PSA Prostate Cancer Rcsgxugch12/15/2021Zoster Vaccines (1 of 2) 1COVID-19 Vaccine (1 - season)2025Influenza Vaccine (#1) 5822Bbzoeegznty862Colorectal Cancer Kujdpserg81/18/2032 Irritable Bowel HqlifuqxJtwpsmdpzwpf18/18/2022HIB VaccinesAged OutNo longer eligible based on patient's [...] DateEnd Date Abhilash Batista MD [id number] PCP - General05/19/99
[2025-05-13 11:41] LABS: Alanine Aminotransferase 32 U/L (16-63); Albumin Globulin Ratio 1.1; Albumin Level 3.7 g/dL (3.4-5.0); Alkaline Phosphatase 97 U/L (46-116); Aspartate Amino Transferase 18 U/L (15-37); Cholesterol 109 mg/dL (<=200); Globulin 3.4 g/dL; HDL Cholesterol 40 mg/dL (40-60); Total Protein 7.1 g/dL (6.4-8.2); Triglycerides 67 mg/dL (<=150); VLDL CHOLESTEROL 13.4 mg/dL
== END 2025-05-13 11:00 | disposition home or self-care (01) ==
LOC: LAB 10:59
PROVIDERS: PCP Family Medicine; Visit Provider Internal Medicine Interventional Cardiology
DX: E78.2 Mixed hyperlipidemia (principal)
CPT/HCPCS: 36415; 80061; 80076